=== PATIENT | male | born 1950 | race Caucasian/White ===

== ENCOUNTER → 2017-06-27 | Outpatient (CLI) | payer MEDICARE ==
[~2017-06-27] MED LIST: ALBUAER3 INH; AMIO200T PO; AMLO10TA2 PO; ASPI-110 PO; ATOR40TA16 PO; CLOP75TA PO; COMMODE 3-IN-11 MIS; CYCL1TAB29 PO; DOCU1CAP39 PO; FURO20TA PO; FURO40TA PO; GETGO ROLLING W1 MI1; GNP5TAB6 PO; HOSP BED1; HYDR-3516 PO; IPRASOL NEB; LEXA20TA PO; LOSA50TA PO; METO25TA3 PO; OMEP40CA2 PO; OXYC1TAB36 PO; PARO40TA2 PO; POLY17S PO; POTA8TAB PO; PRAV80TA2 PO; REST15CA PO; SIMV40TA PO; SUCR1TAB PO; SYMB160A INH; THERM PO; TRAZ50TA12 PO; VITA100018 PO; WHEEMIS3
[2017-06-27 13:37] LABS: BASOPHIL % 0.6 % (0.0-2.0); EOSINOPHIL # 0.1 TH/MM3 (0-0.4); EOSINOPHIL % 2.2 % (0.0-4.0); HEMATOCRIT 38.7 % (39.0-51.0); HEMO FLAGS DIFF FINAL; LYMPH % 29.3 % (9.0-44.0); LYMPHOCYTE # 1.9 TH/MM3 (1.0-4.8); MEAN CELL VOLUME 82.2 FL (80.0-100.0); MEAN CORPUSCULAR HEMOGLOBIN 26.3 PG (27.0-34.0); NEUT % 61.9 % (16.0-70.0); PLATELET COUNT 220 TH/MM3 (150-450); WHITE BLOOD COUNT 6.4 TH/MM3 (4.0-11.0)
[2017-06-27 13:45] LABS: APTT (PATIENT) 26.6 SEC (24.3-30.1); PROTHROMBIN TIME - PATIENT 10.7 SEC (9.8-11.6)
[2017-06-27 14:09] LABS: ANION GAP 6 MEQ/L (5-15); BICARBONATE 32.2 MEQ/L (21.0-32.0); BLOOD UREA NITROGEN 11 MG/DL (7-18); CHLORIDE 100 MEQ/L (98-107); GLOMERULAR FILTRATION RATE 72 ML/MIN (>89); GLUCOSE,FASTING 87 MG/DL (74-99); POTASSIUM 4.1 MEQ/L (3.5-5.1); SODIUM (NA) 138 MEQ/L (136-145)
[2017-06-27 14:26] LABS: BLOOD, URINE NEG (NEG); COMMENT (UR) CULT NOT INDICATED; CULTURE IF INDICATED CULT NOT INDICATED; GLUCOSE,URINE NEG (NEG); KETONE, URINE NEG (NEG); MUCUS URINE FEW /lpf (OCC); NITRITE,URINE NEG (NEG); PH, URINE 6.5 (5.0-8.5); URINE COLOR YELLOW (YELLW/STRAW)
--- NOTE | 2017-06-27 15:01 | RADRPT ---
EXAM DATE/TIME: 06/27/2017 14:13 [facility] COMPARISON: No previous studies available for comparison. INDICATIONS : Preop heart surgery. MEDICAL HISTORY : Cardiovascular disease. Hypertension. SURGICAL HISTORY : Cardiac stents. Left arm surgery. ENCOUNTER: Initial ACUITY: 1 day PAIN SCORE: 0/10 LOCATION: Bilateral leg. TECHNIQUE: Venous ultrasound of the left and right leg was performed from the inguinal ligament to the proximal calf. Real-time, color Doppler and spectral tracing, compression and augmentation techniques were us ed. FINDINGS: RIGHT LEG: There is normal compressibility of the deep venous system from the inguinal region to the proximal ca lf. No echogenic clot is seen in the lumen of the common femoral, femoral, popliteal, and posterior tibial veins. There is a normal response of the venous system to proximal and distal augmentation an d respiration. LEFT LEG: There is normal compressibility of the deep venous system from the inguinal region to the proximal ca lf. No echogenic clot is seen in the lumen of the common femoral, femoral, popliteal, and posterior tibial veins. There is a normal response of the venous system to proximal and distal augmentation an d respiration. CONCLUSION: Normal examination. Arik Hardy MD on June 27, 2017 at 15:00 Board Certified Radiologist. This report was verified electronically.
--- NOTE | 2017-06-27 15:12 | RADRPT ---
EXAM DATE/TIME: 06/27/2017 14:57 [facility] COMPARISON: No previous studies available for comparison. INDICATIONS : Evaluate for pneumonia, pneumothorax, or communicable disease. Pre op for CABG. MEDICAL HISTORY : None. SURGICAL HISTORY : None. ENCOUNTER: Initial ACUITY: 1 day PAIN SCORE: 0/10 LOCATION: Bilateral chest FINDINGS: There is slight atelectasis in right middle lobe and left lung base.. There is no appreciable pleura l effusion for technique. Heart and mediastinum are unremarkable. Degenerative changes and hypertrop hic changes are seen within the disc space and facets of the thoracic spine. CONCLUSION: Bilateral atelectasis. Trisha Bowser MD on June 27, 2017 at 15:10 Board Certified Radiologist. This report was verified electronically.
--- NOTE | 2017-06-27 15:25 | RADRPT ---
EXAM DATE/TIME: 06/27/2017 14:21 [facility] COMPARISON: No previous studies available for comparison. INDICATIONS : Preop cardiac surgery. MEDICAL HISTORY : Hypertension. SURGICAL HISTORY : Cardiac stents. Left arm surgery. ENCOUNTER: Initial ACUITY: 1 day PAIN SCORE: 0/10 LOCATION: Bilateral leg. GREATER SAPHENOUS VEIN THIGH: PROXIMAL: Right 5 mm Left 5 mm MID: Right 2 mm Left 2 mm DISTAL: Right 2 mm Left 1 mm CALF: PROXIMAL: Right Non-visualized Left 1 mm MID: Right Non-visualized Left 1 mm DISTAL: Right Non-visualized Left 2 mm FINDINGS: The venous system of the lower extremities are patent by color Doppler imaging. Measurements of the leg veins (in mm) are listed above. CONCLUSION: 1. Venous mapping as above Jeevan Enriquez MD on June 27, 2017 at 15:23 Board Certified Radiologist. This report was verified electronically.
[2017-06-27 15:36] LABS: MRSA PCR NEGATIVE (NEGATIVE); STAPH AUREUS PCR NEGATIVE (NEGATIVE)
[2017-06-27 15:51] LABS: HEMOGLOBIN A1b 1.9 %; HEMOGLOBIN Ao 84.7 %; HEMOGLOBIN LA1C 1.9 %; HEMOGLOBIN P3 3.6 %
--- NOTE | 2017-06-28 11:53 | EKG ---
Date Performed: 06/27/2017 Time Performed: 12:50:05 PTAGE: 67 years EKG: Sinus rhythm LEFT AXIS DEVIATION NONSPECIFIC T-WAVE ABNORMALITY ABNORMAL ECG NO PREVIOUS TRACING DOCTOR: Truman Winn Interpretating Date/Time 06/28/2017 11:51:08
--- NOTE | 2017-07-03 09:57 | RSPPFT ---
DATE OF PROCEDURE: 06/27/17 COMMENTS: Spirometry with FVC of 2.1, FEV1 of 1.4, FEV1/FVC ratio at 66%. Post-bronchodilator study was not performed. IMPRESSION: 1. Moderately severe airways obstruction.
== END ==
LOC: CPRE 12:08
PROVIDERS: ATTEND Thoracic Surgery (Cardiothoracic Vascular Surgery)
DX: Z01.812 Encounter for preprocedural laboratory examination (principal); Z01.810 Encounter for preprocedural cardiovascular examination; Z01.811 Encounter for preprocedural respiratory examination; I25.10 Atherosclerotic heart disease of native coronary artery without angina pectoris; R94.31 Abnormal electrocardiogram [ECG] [EKG]; J98.11 Atelectasis; Z79.01 Long term (current) use of anticoagulants
CPT/HCPCS: 36415; 71020; 80048; 81001; 82040; 83036; 85025; 85610; 85730; 86850; 86900; 86901; 87640; 87641; 93005; 93970; 93998; 94010

== ENCOUNTER 2017-07-01 07:30 | Inpatient (IN) | payer MEDICARE ==
[~2017-07-01] VITALS: Ht 167.6 cm; Wt 92.5 kg
[~2017-07-01 07:30] MED LIST changes: -AMIO200T PO; -COMMODE 3-IN-11 MIS; -DOCU1CAP39 PO; -FURO40TA PO; -GETGO ROLLING W1 MI1; -GNP5TAB6 PO; -HOSP BED1; -HYDR-3516 PO; -IPRASOL NEB; -POLY17S PO; -POTA8TAB PO; -REST15CA PO; -SYMB160A INH; -THERM PO; -WHEEMIS3
[2017-07-04] VITALS (10 sets, daily range): BP systolic 95–137; BP diastolic 46–70; PULSE 63–84; RESP 13–18; TEMP 97.7–98.1; O2SAT 96–98
[2017-07-04] MEDS ORDERED: VANCOMYCIN HCL 1000 MG VIAL ONE ×3 (06:10→08:43)
[2017-07-04] MEDS ORDERED: HEPARIN SODIUM - SQ 10,000 UNITS/ML VIAL ONE (06:10)
[2017-07-04] MEDS ORDERED: ceFAZolin 2 GM PREMIX 0 ML ONE (06:10)
[2017-07-04] MEDS ORDERED: VANCOMYCIN 1000 MG/NS 250 ML IV SCH ×2 (06:15)
[2017-07-04] MEDS ORDERED: CEFAZOLIN 500 MG in NS IRR BTL 500 ML IRRIGATION SCH (06:15)
[2017-07-04] MEDS ORDERED: INSULIN REGULAR 100 UNITS in NS 100 ML IV SCH (06:15)
[2017-07-04] MEDS ORDERED: PAPAVERINE 60 MG-NITROGLYCERIN 100 MCG-DILTIAZEM 100 MG in NS 100 ML IRRIGATION SCH ×4 (06:15)
[2017-07-04] MEDS ORDERED: METOPROLOL TARTRATE 25 MG TAB PO SCH (06:15)
[2017-07-04] MEDS ORDERED: CHLORHEXIDINE GLUCONATE 4% SOLN 120 ML BTL TOPICAL SCH (06:15)
[2017-07-04] MEDS ORDERED: SODIUM CHLORID 0.9% 500 ML IV PRN (06:30)
[2017-07-04] MEDS ORDERED: INSULIN HUMAN REGULAR 1,000 UNITS/10 ML VIAL SQ PRN (06:30)
[2017-07-04] MEDS ORDERED: METOPROLOL TARTRATE 25 MG TAB PO PRN (06:30)
[2017-07-04] MEDS ORDERED: POVIDONE IODINE 5% (ANTISEPSIS KIT) 4 APPLICATIONS EACH NARE PRN (06:30)
[2017-07-04] MEDS ORDERED: CHLORHEXIDINE GLUCONATE 2 % 1 PACK (2 CLOTHS) TOPICAL PRN (06:30)
[2017-07-04] MEDS ORDERED: LACTATED RINGER'S 1000 ML IV PRN (06:30)
[2017-07-04] MEDS ORDERED: BUPIVACAINE LIPOSO PF 1.3% INJ 20 ML, DEXAMETHASONE INJ 4 MG, MORPHINE INJ 8 MG in SODI... IRRIGATION SCH (08:45)
[2017-07-04] MEDS ORDERED: EPINEPHrine HCL (1:1000) 30 MG/30 ML VIAL IV ONE (12:00)
[2017-07-04] MEDS ORDERED: HEPARIN - 10,000 UNITS/ML IV ADDITIVE IV ONE (12:00)
[2017-07-04] MEDS ORDERED: EPINEPHrine HCL (1:1000) 1 MG/ML VIAL IV ONE (12:00)
[2017-07-04] MEDS ORDERED: DEXAMETHASONE SOD PHOS 4 MG/ML VIAL IV ONE (12:00)
[2017-07-04] MEDS ORDERED: LIDOCAINE HCL 1% PF 5 ML AMPULE OTHER ONE (12:00)
[2017-07-04] MEDS ORDERED: VECURONIUM BROMIDE 10 MG VIAL IV ONE (12:00)
[2017-07-04] MEDS ORDERED: PROPOFOL 500 MG/50 ML BTL IV ONE (12:00)
[2017-07-04] MEDS ORDERED: GLYCOPYRROLATE 0.2 MG/ML VIAL IV ONE (12:00)
[2017-07-04] MEDS ORDERED: LACTATED RINGER'S 1000 ML INJ 1,000 ML IV ONE (12:00)
[2017-07-04] MEDS ORDERED: NORMOSOL R INJ 1,000 ML IV ONE (12:00)
[2017-07-04] MEDS ORDERED: AMINOCAPROIC ACID INJ 250 MG/ML 20 ML VIAL IV ONE (12:00)
[2017-07-04] MEDS ORDERED: ARTIFICIAL TEARS OPTH OINT 3.5 APPLIC/3.5 GM TUBO EACH EYE ONE (12:00)
[2017-07-04] MEDS ORDERED: PHENYLEPHRINE HCL 10 MG/ML VIAL IV ONE (12:00)
[2017-07-04] MEDS ORDERED: CALCIUM CHLORIDE 10% SOLN 1 GRAM/10 ML SYR IV ONE (12:00)
[2017-07-04] MEDS ORDERED: DEXMEDETOMIDINE HCL 200 MCG/2 ML VIAL IV ONE (12:00)
[2017-07-04] MEDS ORDERED: NEOSTIGMINE 3 MG/3 ML SYR IV ONE (12:00)
[2017-07-04] MEDS ORDERED: NITROGLYCERIN 50 MG/DEXTROSE 5% SOLN 250 ML BTL IV ONE (12:00)
[2017-07-04] MEDS ORDERED: MAGNESIUM SULFATE 1000 MG/2 ML VIAL (PED) IV ONE (12:00)
[2017-07-04] MEDS ORDERED: PROTAMINE SULFATE 250 MG/25 ML VIAL IV ONE (12:00)
[2017-07-04] MEDS ORDERED: LACTATED RINGER'S 1000 ML INJ 500 ML IV PRN (12:25)
[2017-07-04] MEDS ORDERED: DOBUTamine PREMIX DRIP 250 ML IV SCH (12:25)
[2017-07-04] MEDS ORDERED: METOPROLOL TARTRATE 5 MG/5 ML VIAL IV PUSH PRN (12:30)
[2017-07-04] MEDS ORDERED: MEPERIDINE HCL 25 MG/ML VIAL IV PRN (12:30)
[2017-07-04] MEDS ORDERED: DEXMEDETOMIDINE INJ 200 MCG in SODIUM CHLORIDE 0.9% INJ 50 ML IV PRN (12:30)
[2017-07-04] MEDS ORDERED: ALBUMIN HUMAN 5% 12.5 GM/250 ML BOTTLE IV PRN (12:30)
[2017-07-04] MEDS ORDERED: DEXTROSE 50% IN WATER 50 ML VIAL(D50) IV PUSH PRN (12:30)
[2017-07-04] MEDS ORDERED: POTASSIUM CHLOR 20 MEQ PREMIX 100 ML IV PRN ×3 (12:30)
[2017-07-04] MEDS ORDERED: hydrALAZINE HCL 20 MG/ML VIAL IV PRN (12:30)
[2017-07-04] MEDS ORDERED: MAGNESIUM SULFATE INJ 2 GM in SODIUM CHLORIDE 0.9% INJ 100 ML IV PRN ×4 (12:30)
[2017-07-04] MEDS ORDERED: NITROGLYCERIN-D5W 50 MG/250 ML 250 ML IV PRN (12:30)
[2017-07-04] MEDS ORDERED: CLEVIDIPINE INJ 50 ML IV PRN (12:30)
[2017-07-04] MEDS ORDERED: ACETAMINOPHEN 325 MG TAB PO PRN (12:30)
[2017-07-04] MEDS ORDERED: Post-op Orders (for Pharmacy) MISC OTHER ONE (12:30)
[2017-07-04] MEDS ORDERED: POTASSIUM CHLORIDE 20 MEQ CONTROLLED RELEASE TAB PO PRN ×2 (12:30)
[2017-07-04] MEDS ORDERED: ONDANSETRON HCL 4 MG/2 ML VIAL IV PUSH PRN (12:30)
[2017-07-04] MEDS ORDERED: INSULIN REGULAR (IV INFUSION) 100 UNITS in SODIUM CHLORIDE 0.9% INJ 99 ML IV SCH (12:30)
[2017-07-04] MEDS ORDERED: SODIUM CHLORIDE 0.9% FLUSH 10 ML FLUSH IV FLUSH PRN (12:30)
[2017-07-04] MEDS ORDERED: ACETAMINOPHEN 650 MG SUPP RECTAL PRN (12:30)
[2017-07-04] MEDS ORDERED: CALCIUM CHLORIDE 10% 1 GRAM/10 ML VIAL IV PRN (12:30)
[2017-07-04] MEDS ORDERED: CALCIUM CHLORIDE INJ 1 GM in SODIUM CHLORIDE 0.9% INJ 100 ML IV PRN (12:30)
[2017-07-04] MEDS ORDERED: DOPamine INJ PREMIX 500 ML IV PRN (12:30)
[2017-07-04] MEDS ORDERED: PHENYLEPHRINE INJ 40 MG in DEXTROSE 5% IN WATE 500 ML INJ 496 ML IV PRN ×2 (12:30)
[2017-07-04] MEDS ORDERED: MORPHINE SULFATE 4 MG/ML INJ IV PRN (12:30)
[2017-07-04] MEDS ORDERED: RESP: RACEPINEPHRINE 2.25% 0.5 ML NEB NEB PRN ×2 (12:30→13:45)
--- NOTE | 2017-07-04 12:33 | PD.OP ---
cc: Bennett Lindsey MD Operative Report Date of Surgery: Jul 04, 2017 Preoperative Diagnosis: Postoperative Diagnosis: Procedure: 1. Off-pump Coronary Artery Bypass Grafting x 4 with Left Internal Mammary Artery (VILLAGRAN) to Left Anterior Descending (LAD), reverse saphenous vein graft to the RCA, reverse saphenous vein graft to the OM1 and reverse saphenous vein graft to the Diagonal 1 2. Ultrasound-guided Dissection of the LAD 3. Left Leg Endoscopic Vein [place] 4. Intraoperative Vein Mapping. Surgeon: Bennett Lindsey Sausage Maker(s): Jimena Bone Operation and Findings: PREPROCEDURE DIAGNOSES 1. Severe Multi Vessel Coronary Artery Disease. 2. Unstable Angina 3. Previous Myocardial Infarction 4. Deeply Intramyocardial Coronary Arteries POSTPROCEDURE DIAGNOSES Same SURGICAL PROCEDURE 1. Off-pump Coronary Artery Bypass Grafting x 4 with Left Internal Mammary Artery (VILLAGRAN) to Left Anterior Descending (LAD), reverse saphenous vein graft to the RCA, reverse saphenous vein graft to the OM1 and reverse saphenous vein graft to the Diagonal 1 2. Ultrasound-guided Dissection of the LAD 3. Left Leg Endoscopic Vein [place] 4. Intraoperative Vein Mapping. SURGEON Bennett Lindsey MD CHANNEL ROUGHER CAM Bernal ANESTHESIA General endotracheal RIFFLER TENDER HARRIS Villarreal MD PREPARATION ChloraPrep. COUNTS Needle, sponge, and instrument counts were correct. DRAINS Two 32-Nepali mediastinal tubes. COMPLICATIONS None. INDICATIONS FOR PROCEDURE The patient is a 67-year-old presenting with chest pain. Patient was noted to have multi-vessel coronary artery disease. The patient is being brought to the operating room for surgical revascularization therapy. PROCEDURE Patient was brought to the operating room and placed supine on the OR table. Following the induction of adequate general endotracheal anesthesia and placement of appropriate monitoring devices, intraoperative vein mapping was performed which revealed suitable-caliber conduit in bilateral lower extremities. The patient was then prepped and draped in standard sterile fashion. Next, 2500 units of intravenous heparin was given. The left greater saphenous vein was harvested endoscopically. This appeared to be a useable- caliber conduit. Simultaneously, a median sternotomy was performed and the left internal mammary artery dissected free off the posterior sternal table. The patient was systemically heparinized and anticoagulation monitored by serial ACT measurements. The internal mammary artery had excellent pulsatile flow in it and was a good-caliber conduit. The pericardium was then divided in the midline, the cradle created and targets analyzed. At this point, all anastomoses were performed in a beating-heart fashion using the Maquet stabilizing system. The left internal mammary artery was anastomosed to the mid LAD (1.75 mm) in an end-to-side fashion using 7-0 Prolene. Segment of saphenous vein graft was then anastomosed to the RCA (2.75 mm) in an end-to-side fashion using 7-0 Prolene. The next segment was anastomosed to the D1 (1.5 mm) in an end -to-side fashion using a running 7-0 Prolene. The final segment was anastomosed to the OM1 (2 mm) in an end-to-side fashion using 7-0 Prolene. The proximal anastomoses were then constructed to the ascending aorta in a running manner using 6-0 Prolene. All anastomotic sites were inspected and appeared to be hemostatic and patent. Protamine solution was given. Strict hemostasis was assured. The closure was undertaken. 2 chest tubes were placed. The pericardium was reapproximated in the midline. The sternum was approximated using sternal wires. The muscular and fascial layer were then closed in 3 layers. The endoscopic vein harvest site was closed in 2 layers. The patient tolerated the procedure well and was transferred to CVICU in stable condition. Bennett Lindsey MD Jul 04, 2017 12:33
[2017-07-04] MEDS ORDERED: PHENYLEPHRINE HCL 10 MG/ML VIAL ONE (13:07)
[2017-07-04] MEDS ORDERED: MIDAZOLAM HCL 5 MG/5 ML VIAL ONE (13:08)
[2017-07-04] MEDS ORDERED: fentaNYL CITRATE 1000 MCG/20 ML VIAL ONE (13:08)
[2017-07-04] MEDS ORDERED: RESP: ALBUTEROL 2.5 MG/IPRATROPIUM 0.5 MG NEB (PRN) NEB (13:45)
[2017-07-04] MEDS ORDERED: SODIUM BICARBONATE 8.4% INJ 50 MEQ/50 ML SYR ONE (13:53)
--- NOTE | 2017-07-04 14:11 | RADRPT ---
EXAM DATE/TIME: 07/04/2017 13:08 [facility] COMPARISON: CHEST PA & LAT, June 27, 2017, 14:57. INDICATIONS : Post-op CABG. MEDICAL HISTORY : None. SURGICAL HISTORY : CABG. ENCOUNTER: Initial ACUITY: 1 day PAIN SCORE: Non-responsive. LOCATION: Bilateral chest FINDINGS: A single view of the chest demonstrates the endotracheal tube, left chest tube are in good position. A nasogastric tube reaches the lower esophagus. Left subclavian central line in good position. The c ardiomediastinal contours are unremarkable. Osseous structures are intact. CONCLUSION: Tubes and catheters as above. The nasogastric extends to the distal esophagus Kiet Washington MD on July 04, 2017 at 14:09 Board Certified Radiologist. This report was verified electronically.
--- NOTE | 2017-07-04 14:13 | PD.CAR.PN ---
CVT Progress Note Subjective/Hospital Course: 67/ male Pt of Dr Oleg Gifford ( PCP) and Dr Nj Echeverria (cardiology in [place] ) known hx of AMI and subsequent PCI ( [place]) with progressive symptoms of chest pain, SOB and fatigue. Underwent further testing with + stress test showing reversible ischemia, cardiac cath revealed multivessel disease EF 55-60% , mild MR, TR PMH: CAD/ stent ( prior [place]) , COPD, depression , GERD, HTN, HLP, spinal surgery surgery 07/04: 1. Off-pump Coronary Artery Bypass Grafting x 4 with Left Internal Mammary Artery (VILLAGRAN) to Left Anterior Descending (LAD), reverse saphenous vein graft to the RCA, reverse saphenous vein graft to the OM1 and reverse saphenous vein graft to the Diagonal 1 2. Ultrasound-guided Dissection of the LAD 3. Left Leg Endoscopic Vein [place] Objective: Vital Signs Date Time Temp Pulse Resp B/P (MAP) Pulse Ox O2 Delivery O2 Flow Rate FiO2 07/04/17 14:00 98 55 07/04/17 13:23 50 07/04/17 12:49 96 60 07/04/17 06:49 97.6 69 20 137/84 (101) 95 Lotus Sahni Jul 04, 2017 14:13
[2017-07-04] MEDS: ACETAMINOPHEN 1000 MG/100 ML 100 ML IV SCH ×2 (14:18→20:00)
--- NOTE | 2017-07-04 14:20 | HHI.FF ---
Face to Face Verification Diagnosis: (1) S/P CABG x 4 (2) Coronary artery disease (3) COPD (chronic obstructive pulmonary disease) (4) Hyperlipemia (5) Hypertension (6) Depression Home Health Nursing Order: Signs/symptoms of disease process Wound care and dressing changes Nursing assessment with vital signs Instructions: Heart and Vascular Surgery patients *Special attention to sternal dressing Mandatory frequency Assess and evaluation, 4 days in a row The next week 3X week 2 times a week for 4 weeks 1 time a week for 5 weeks Schedule Heart and Vascular patients for full 60 day certification period Initial visit Review Open Heart Surgery Discharge Instructions (Sternal precautions, Activity, Elastic hose, Incision care, Driving, Incentive spirometry, Smoking, [place], Work and other) Need Betadine to paint incision Medication reconciliation Importance of follow up care/ check on appointments Make calendar record temperature daily When to call [facility] nurse, review instructions, phone list Incentive Spirometry, demonstration Visit 1- Begin discharge instruction for patient family and/ or caregiver using teach back method- Signs and symptoms of infection Disease characteristics Medicines and side effects Foods and nutrition/ appetite Infection control/ hand washing/ hygiene Visit 2- Continue teaching Discharge instructions- include additional information on smoking cessation , sternal dressing (sternal vac) Visit 3- Continue teaching- Cough and deep breathing, incision monitoring. Choose my plate Visit 4- Continue teaching- Discuss limitations Discuss how they are feeling Discuss progress toward goals Remaining visits- continue teaching and monitoring PREVENA Single Use Negative Wound Therapy System Caregiver Instruction Sheet 1. A Prevena dressing system was applied to the chest incision during surgery , to promote wound healing. It works via a suction device (negative pressure wound therapy) to remove low to moderate levels of exudate (drainage) and infectious materials. We recommend that the device stay in place for up to seven days, from day of surgery. 2. Day of Surgery____/ Day of Removal ___/ 3. The dressing should only be removed by a health vocational childcare teacher. Please arrange removal of device to coincide with Home Health visit and or with Nursing staff at Rehab 4. If skin reddening or irritation of skin occurs, or excessive drainage, please notify the Cardiovascular Surgeons office at [phone]. 5. Light showering is permissible; however the pump should be disconnected and placed in safe location, where it will not get wet. The dressing should not be exposed to direct spray or submerged in water. No bath tub / shower only. Ensure the end of the tubing attached to the dressing is facing down so that water does not enter the top of the tube. 6. To remove Prevena dressing: press purple button to turn off device / remove the suction. Then disconnect the tubing from the pump. The fixation strips should be stretched away from the skin and the dressing lifted at one corner and peeled back until it has been fully removed. 7. After removal, it is ok to shower daily using liquid dial soap and clean wash cloth, rinse and pat dry, and leave incision open to air dry. For any concerns regarding Prevena dressing, and or wounds, please contact Lianet Rod, patient navigator at [phone] or notify the Cardiovascular Surgeons office at [phone]. Incentive spirometry Q1 hr x 10, while awake, also use acapella device hourly whole awake Sternal Breast Bone Precautions: NO pushing or pulling, ( pt must use sternal pillow to support chest with all activities and with coughing ( takes up to 3 months breast bone to heal ) Daily incision care: ok to shower daily, no tub bath. Wash all incisions with liquid dial soap, clean wash cloth to each site, rinse and pat dry. Observe for any signs of infection, such as drainage which is dark yellow, dial, green or foul smelling. Immediately report to the surgeon any drainage from the chest incision, or legs, and for any abnormal drainage from the chest tube sites. Notify surgeon if any temp >101.5 degrees F. When specialty dressing removed/ or if you do not have one, continue to shower daily as above, then rinse and pat incision dry and paint with betadine daily x 5 days. Allow steri strips to fall off if you have any. Avoid lotions, creams, salves, oils, etc. for the first month Please see attached forms for additional instructions regarding post Open Heart specialty wound vacuum dressings. PADMINI or Prevena , Dressing to be removed by Nursing staff on __/ F/U appointment: as per DC instructions: PCP in 2 weeks, CV surgeon 2 weeks, Biophysics Professor 3-4 weeks For any questions regarding incisions/ dressing / meds / post op care or above Symptoms, Saturday 8am-5pm Heart & Vascular Surgery Office ( Dr. Lindsey & Dr. Ponce), After Hours / Nights (5pm -8am) Weekends and Holidays Please call [facility] ([facility]) Charge Nurse I have seen patient Ed Eric on 07/04/17. My clinical findings support the need for the requested home health care services because: Deconditioned w/ increased weakness I certify that my clinical findings support that this patient is homebound because: Post-op weakness Lotus Sahni Jul 04, 2017 14:20
[2017-07-04] MEDS: SODIUM CHLORIDE 0.9% FLUSH 10 ML FLUSH IV FLUSH SCH ×2 (15:26→20:18)
[2017-07-04] MEDS ORDERED: RESP: ALBUTEROL 2.5 MG/IPRATROPIUM 0.5 MG NEB (SCH) NEB (16:00)
[2017-07-04] MEDS: KETOROLAC TROMETHAMINE 30 MG/ML (IVP) VIAL IV PUSH PRN (16:13)
[2017-07-04] MEDS: RESP: ALBUTEROL 2.5 MG/IPRATROPIUM 0.5 MG NEB (SCH) NEB (16:57)
[2017-07-04] MEDS: AMIODARONE 200 MG TAB PO SCH (20:16)
[2017-07-04] MEDS: oxyCODONE/ACETAMINOPHEN 5 MG/325 MG TAB PO PRN (20:16)
[2017-07-04] MEDS: VANCOMYCIN INJ 1,000 MG in SODIUM CHLOR 0.9% 250 ML INJ 250 ML IV SCH (20:17)
--- NOTE | 2017-07-04 20:25 | PD.CONS ---
[facility] Service Critical Care Medicine Consult Requested By Dr. Lindsey Reason for Consult post-operative management of hemodynamic instability Primary Care Physician No Primary Care Physician History of Present Illness This is a 67-year-old male with a history of coronary artery disease who presented for elective off-pump three-vessel CABG, VILLAGRAN to LAD, vein to RCA, vein to OM1. He had an uncomplicated intraoperative course. However, he arrived to the CVICU on epinephrine 50 mics per minute, with phenylephrine pushes, systolic blood pressure in the 80s. I value patient at bedside at the request of the CVICU team. I performed bedside critical care ultrasonography which had very poor windows due to his recent sternotomy, but did provide sufficient evidence to rule out circumferential pericardial effusion and demonstrated what appeared to be an underfilled left ventricular cavity. Patient was given 750 cc crystalloid, 500 cc albumin with improvement in hemodynamics. Patient initially had a lactate of 5 and had a urine output of less than 10 mLs in the first hour. After the above resuscitation, the patient' s lactate cleared and he had urine output greater than 50 cc an hour for the subsequent 3 hours. Patient had less than 200 cc chest tube output over the first 4 hours. After his initial hemodynamic instability he was extubated on pathway. Critical-care medicine is consulted to evaluate and manage his hemodynamics post CABG. Review of Systems ROS Limitations: Clinical Condition, Intubated Past Family Social History Allergies: Coded Allergies: gabapentin (Verified Allergy, Severe, Twitching, 06/27/17) Past Medical History CAD/ stent ( prior [place]) COPD depression GERD HTN HLP Past Surgical History spinal surgery Reported Medications Trazodone (Trazodone HCl) 50 Mg Tab 50 Mg PO HS Sucralfate 1 Gram Tab 1 Gm PO BID on empty stomach Simvastatin 40 Mg Tab 40 Mg PO HS Paroxetine (Paroxetine HCl) 40 Mg Tab 40 Mg PO DAILY Oxycodone-Acetaminophen 10-325 mg Tab 1 Tab PO Q4H PRN Omeprazole 40 Mg Cap 40 Mg PO DAILY Metoprolol Tartrate 25 Mg Tab 25 Mg PO DAILY Losartan (Losartan Potassium) 50 Mg Tab 50 Mg PO DAILY Furosemide 20 Mg Tab 20 Mg PO DAILY Lexapro (Escitalopram Oxalate) 20 Mg Tab 20 Mg PO DAILY Flexeril (Cyclobenzaprine HCl) 10 Mg Tab 10 Mg PO TID PRN Clopidogrel (Clopidogrel Bisulfate) 75 Mg Tab 75 Mg PO DAILY Vitamin D3 (Cholecalciferol) 1,000 Unit Tab 1,000 Units PO DAILY Aspirin 81 (Aspirin) 81 Mg Tabdr 81 Mg PO DAILY Proair Hfa 8.5 GM Inh (Albuterol Sulfate) 90 Mcg/Act Aer 1 Puff INH Q4H PRN 108 mcg/actuation Active Ordered Medications See MAR Family History unable to obtain from patient secondary to his clinical condition. Social History unable to obtain from patient due to his clinical condition Physical Exam Vital Signs Vital Signs Date Time Temp Pulse Resp B/P (MAP) Pulse Ox O2 Delivery O2 Flow Rate FiO2 07/04/17 19:00 97.8 77 16 112/70 (84) 97 137/57 (83) 07/04/17 19:00 97 Nasal Cannula 3.00 07/04/17 18:09 97.7 07/04/17 17:34 16 07/04/17 16:26 67 157/75 07/04/17 16:05 98 Nasal Cannula 3.00 07/04/17 16:00 67 157/75 07/04/17 15:45 97.7 07/04/17 15:15 64 135/68 07/04/17 15:00 40 07/04/17 15:00 97.7 63 13 104/54 (71) 98 121/61 (81) 07/04/17 15:00 63 07/04/17 15:00 97 Mechanical Ventilator 40 07/04/17 14:48 14 07/04/17 14:30 62 120/60 07/04/17 14:15 70 147/72 07/04/17 14:14 96 55 07/04/17 14:00 98 55 07/04/17 13:45 64 83/45 07/04/17 13:40 97.9 07/04/17 13:30 65 79/49 07/04/17 13:23 50 07/04/17 12:49 96 60 07/04/17 12:45 97.9 69 14 96/46 (63) 96 95/49 (64) 07/04/17 12:45 96 Mechanical Ventilator 60 07/04/17 12:45 60 07/04/17 06:49 97.6 69 20 137/84 (101) 95 Physical Exam GENERAL: Middle-aged male, lying in bed, intubated, sedated HEENT: Normocephalic. Atraumatic. Pupils equal, round, reactive, conjugate. Mucous membranes are moist NECK: Trachea is midline. There is no JVD. CHEST: Midline sternal wound with wound VAC in place. 2 chest tubes exit subxiphoid with 50 mL bright red blood. No air leak. CARDIOVASCULAR: Normal rate, regular rhythm. Sinus by telemetry. Hypotensive systolic and 80s. ABDOMEN: Soft, nontender, nondistended. No guarding. MUSCULOSKELETAL: Pulses 2+. No peripheral edema. NEUROLOGICAL: RASS -3. Sedated, intubated. Withdraws to pain. Does not follow commands on my initial evaluation. Imaging Last Impressions Chest X-Ray 07/04/17 0000 Signed Impressions: Service Date/Time: June 13:08 - CONCLUSION: Tubes and catheters as above. The nasogastric extends to the distal esophagus Kiet Washington MD Assessment and Plan Assessment and Plan Assessment: 67-year-old male postop day 0 status post three-vessel off-pump CABG (VILLAGRAN-->LAD, SVG-->RCA, SVG-->OM1) with early hemodynamic instability likely related to under resuscitation. We'll keep in ICU and monitor closely. We'll trend lactates. Will monitor urine output very closely and chest tube output. Hypotension Hypovolemic Shock -- continue crystalloid resuscitation -- transition from epinephrine to phenylephrine for map goal > 65 mmHg -- trend lactates -- watch uop closely s/p CABG x 3 -- anticoagulation plan per CT surgery -- CT to suction -- watch CT output HLD -- restart statin in AM HTN -- goal sbp < 160 -- will wait until tomorrow to restart anti-hypertensives. This patient remains critically ill with one or more organ systems which are or may become a threat to life. I have spent in excess of 54 minutes discontinuously in the care and management of this patient. This time is exclusive of procedures, and includes, but is not limited to, evaluation of the patient, review of the medical record, discussions with family, consultants, nursing staff, or respiratory therapy, and documentation in the medical record. Geremias Ayoub MD Jul 04, 2017 20:25
[2017-07-05] VITALS (13 sets, daily range): BP systolic 110–159; BP diastolic 52–83; PULSE 72–89; RESP 14–18; TEMP 97.9–98.4; O2SAT 91–99
[2017-07-05] MEDS: oxyCODONE/ACETAMINOPHEN 5 MG/325 MG TAB PO PRN ×5 (01:07→19:09)
[2017-07-05] MEDS: ACETAMINOPHEN 1000 MG/100 ML 100 ML IV SCH ×2 (02:00→08:16)
[2017-07-05] MEDS: KETOROLAC TROMETHAMINE 30 MG/ML (IVP) VIAL IV PUSH PRN ×2 (03:25→21:27)
[2017-07-05] MEDS: RESP: ALBUTEROL 2.5 MG/IPRATROPIUM 0.5 MG NEB (SCH) NEB ×5 (03:34→20:30)
--- NOTE | 2017-07-05 05:33 | RADRPT ---
EXAM DATE/TIME: 07/05/2017 04:33 [facility] COMPARISON: CHEST SINGLE AP, July 04, 2017, 13:08. INDICATIONS : Status post CABG. MEDICAL HISTORY : None. SURGICAL HISTORY : CABG. ENCOUNTER: Subsequent ACUITY: 2 days PAIN SCORE: 0/10 LOCATION: chest FINDINGS: A single view of the chest demonstrates the lungs to be symmetrically aerated with stable position of a left thoracostomy tube no pneumothorax. Worsening atelectatic changes of the right hemidiaphragm w ith a worsening area of consolidation/effusion in the left base. Heart size is borderline but appears to be well compensated. Endotracheal tube is been removed. Stable position of the mediastinal drain and left subclavian central venous catheter. CONCLUSION: 1. Progressive atelectatic changes above the right hemidiaphragm with worsening consolidation/effusio n in the left base. 2. Left-sided thoracostomy tube without pneumothorax. 3. Endotracheal tube has been removed. Justino Kitchen MD on July 05, 2017 at 5:30 Board Certified Radiologist. This report was verified electronically.
[2017-07-05 05:49] LABS: HEMATOCRIT 31.1 % (39.0-51.0); MEAN CELL VOLUME 82.3 FL (80.0-100.0); MEAN CORPUSCULAR HEMOGLOBIN 26.6 PG (27.0-34.0); MEAN CORPUSCULAR HGB CONC 32.3 % (32.0-36.0); PLATELET COUNT 173 TH/MM3 (150-450); RED BLOOD COUNT 3.77 MIL/MM3 (4.50-5.90); REVIEW FLAG FINAL; WHITE BLOOD COUNT 10.8 TH/MM3 (4.0-11.0)
[2017-07-05] MEDS: PANTOPRAZOLE SOD 40 MG DELAYED RELEASE TAB PO SCH (06:00)
[2017-07-05 06:03] LABS: BICARBONATE 25.6 MEQ/L (21.0-32.0); POTASSIUM 5.2 MEQ/L (3.5-5.1)
[2017-07-05] MEDS ORDERED: FUROSEMIDE 40 MG/4 ML VIAL ONE (06:51)
--- NOTE | 2017-07-05 07:29 | PD.CAR.PN ---
CVT Progress Note Subjective/Hospital Course: 67/ male Pt of Dr Oleg Gifford ( PCP) and Dr Nj Echeverria (cardiology in [place] ) known hx of AMI and subsequent PCI ( [place]) with progressive symptoms of chest pain, SOB and fatigue. Underwent further testing with + stress test showing reversible ischemia, cardiac cath revealed multivessel disease EF 55-60% , mild MR, TR PMH: CAD/ stent ( prior [place]) , COPD, depression , GERD, HTN, HLP, spinal surgery surgery 07/04: 1. Off-pump Coronary Artery Bypass Grafting x 4 with Left Internal Mammary Artery (VILLAGRAN) to Left Anterior Descending (LAD), reverse saphenous vein graft to the RCA, reverse saphenous vein graft to the OM1 and reverse saphenous vein graft to the Diagonal 1 2. Ultrasound-guided Dissection of the LAD 3. Left Leg Endoscopic Vein [place] 07/05 Doing well Extubated and tolerating well On no pressors/inotropes Transfer telemetry Ambulate Objective: Vital Signs Date Time Temp Pulse Resp B/P (MAP) Pulse Ox O2 Delivery O2 Flow Rate FiO2 07/05/17 03:34 96 Nasal Cannula 3.00 07/05/17 03:00 96 Nasal Cannula 3.00 07/05/17 03:00 77 07/05/17 03:00 98.4 77 16 110/67 (81) 97 130/52 (78) 07/04/17 23:00 84 07/04/17 23:00 96 Nasal Cannula 3.00 07/04/17 23:00 98.1 84 18 119/65 (83) 96 131/60 (83) 07/04/17 19:00 97.8 77 16 112/70 (84) 97 137/57 (83) 07/04/17 19:00 97 Nasal Cannula 3.00 07/04/17 19:00 77 07/04/17 18:09 97.7 07/04/17 17:34 16 07/04/17 16:26 67 157/75 07/04/17 16:05 98 Nasal Cannula 3.00 07/04/17 16:00 67 157/75 07/04/17 15:45 97.7 07/04/17 15:15 64 135/68 07/04/17 15:00 40 07/04/17 15:00 97.7 63 13 104/54 (71) 98 121/61 (81) 07/04/17 15:00 63 07/04/17 15:00 97 Mechanical Ventilator 40 07/04/17 14:48 14 07/04/17 14:30 62 120/60 07/04/17 14:15 70 147/72 07/04/17 14:14 96 55 07/04/17 14:00 98 55 07/04/17 13:45 64 83/45 07/04/17 13:40 97.9 07/04/17 13:30 65 79/49 07/04/17 13:23 50 07/04/17 12:49 96 60 07/04/17 12:45 97.9 69 14 96/46 (63) 96 95/49 (64) 07/04/17 12:45 96 Mechanical Ventilator 60 07/04/17 12:45 60 Labs: Laboratory Tests Test 07/05/17 04:50 White Blood Count 10.8 TH/MM3 (4.0-11.0) Red Blood Count 3.77 MIL/MM3 (4.50-5.90) Hemoglobin 10.0 GM/DL (13.0-17.0) Hematocrit 31.1 % (39.0-51.0) Mean Corpuscular Volume 82.3 FL (80.0-100.0) Mean Corpuscular Hemoglobin 26.6 PG (27.0-34.0) Mean Corpuscular Hemoglobin Concent 32.3 % (32.0-36.0) Red Cell Distribution Width 15.0 % (11.6-17.2) Platelet Count 173 TH/MM3 (150-450) Mean Platelet Volume 7.9 FL (7.0-11.0) Blood Urea Nitrogen 13 MG/DL (7-18) Creatinine 0.70 MG/DL (0.60-1.30) Random Glucose 120 MG/DL (74-106) Calcium Level 7.6 MG/DL (8.5-10.1) Magnesium Level 2.0 MG/DL (1.5-2.5) Sodium Level 138 MEQ/L (136-145) Potassium Level 5.2 MEQ/L (3.5-5.1) Chloride Level 106 MEQ/L (98-107) Carbon Dioxide Level 25.6 MEQ/L (21.0-32.0) Anion Gap 6 MEQ/L (5-15) Estimat Glomerular Filtration Rate 112 ML/MIN (>89) Result Diagram: 07/05/17 0450 07/05/17 0450 (1) S/P CABG x 4 (2) Coronary artery disease Problem Qualifiers (1) Coronary artery disease: Bennett Lindsey MD Jul 05, 2017 07:29
[2017-07-05] MEDS ORDERED: GLUCAGON 1 MG/ML VIAL OTHER PRN (07:45)
[2017-07-05] MEDS ORDERED: SOD PHOSPHATE/SOD BIPHOSPHATE (ADULT) ENEMA 133ML RECTAL PRN (07:45)
[2017-07-05] MEDS ORDERED: CYCLOBENZAPRINE HCL 10 MG TAB PO PRN (07:45)
[2017-07-05] MEDS ORDERED: DEXTROSE 50% IN WATER 50 ML VIAL(D50) IV PRN (07:45)
[2017-07-05] MEDS ORDERED: BISACODYL 10 MG SUPP RECTAL PRN (07:45)
[2017-07-05] MEDS: VANCOMYCIN INJ 1,000 MG in SODIUM CHLOR 0.9% 250 ML INJ 250 ML IV SCH ×2 (08:24→21:24)
[2017-07-05] MEDS: MULTIVITAMIN INJ 10 ML, THIAMINE INJ 500 MG, FOLIC ACID INJ 1 MG in SODIUM CHLORID 0.9%... IV SCH (08:35)
[2017-07-05] MEDS: SODIUM CHLORIDE 0.9% FLUSH 10 ML FLUSH IV FLUSH SCH ×2 (08:47→21:24)
[2017-07-05] MEDS: AMIODARONE 200 MG TAB PO SCH ×2 (08:48→21:22)
[2017-07-05] MEDS: ASPIRIN 81 MG CHEW TAB PO SCH (08:48)
[2017-07-05] MEDS: CLOPIDOGREL 75 MG TAB PO SCH (08:48)
[2017-07-05] MEDS: ESCITALOPRAM OXALATE 20 MG TAB PO SCH (09:00)
[2017-07-05] MEDS: SUCRALFATE 1 GM TAB PO SCH ×2 (09:00→21:23)
[2017-07-05] MEDS: PARoxetine HCL 20 MG TAB PO SCH (09:00)
[2017-07-05] MEDS: METOPROLOL TARTRATE 25 MG TAB PO SCH ×2 (09:18→21:23)
[2017-07-05] MEDS: MAGNESIUM HYDROXIDE SUSP 30 ML CUP PO SCH (09:18)
[2017-07-05] MEDS: MULTIVITAMINS/MINERALS THERAPEUTIC TAB PO SCH (09:18)
[2017-07-05] MEDS: INSULIN ASPART SUPPLEMENTAL SCALE SQ SCH ×4 (09:42→22:00)
--- NOTE | 2017-07-05 13:50 | EKG ---
Date Performed: 07/05/2017 Time Performed: 05:25:48 PTAGE: 67 years EKG: Sinus rhythm Possible inferior infarct - age undetermined Low QRS voltages in precordial leads Nonspecific T wave changes Abnormal ECG No significant change from prior electrocardiogram. PREVIOUS TRACING : 06/27/2017 12.50 DOCTOR: Jarek Junior Interpretating Date/Time 07/05/2017 13:48:16
[2017-07-05] MEDS: DOCUSATE SODIUM 100 MG CAP PO SCH (21:22)
[2017-07-05] MEDS: traZODone HCL 50 MG TAB PO SCH (21:23)
[2017-07-05] MEDS: SENNOSIDES 8.6 MG TAB PO SCH (21:23)
[2017-07-05] MEDS: PRAVASTATIN SOD 80 MG TAB PO SCH (21:25)
[2017-07-06] VITALS (29 sets, daily range): BP systolic 110–140; BP diastolic 66–83; PULSE 63–84; RESP 14–22; TEMP 97.6–99.1; O2SAT 91–99
[2017-07-06] MEDS: INSULIN ASPART SUPPLEMENTAL SCALE SQ SCH ×5 (02:00→20:48)
[2017-07-06] MEDS ORDERED: TEMAZEPAM 15 MG CAP PO SCH (02:00)
[2017-07-06] MEDS: TEMAZEPAM 15 MG CAP PO PRN ×2 (02:06→20:47)
[2017-07-06] MEDS: oxyCODONE/ACETAMINOPHEN 5 MG/325 MG TAB PO PRN ×3 (05:36→23:21)
[2017-07-06] MEDS: PANTOPRAZOLE SOD 40 MG DELAYED RELEASE TAB PO SCH (05:36)
[2017-07-06] MEDS: KETOROLAC TROMETHAMINE 30 MG/ML (IVP) VIAL IV PUSH PRN (05:40)
[2017-07-06 06:00] LABS: AUTOMATED NEUTROPHIL # 6.6 TH/MM3 (1.8-7.7); BASOPHIL % 0.1 % (0.0-2.0); EOSINOPHIL % 0.3 % (0.0-4.0); HEMATOCRIT 27.6 % (39.0-51.0); HEMO FLAGS DIFF FINAL; LYMPH % 12.4 % (9.0-44.0); MEAN CELL VOLUME 82.7 FL (80.0-100.0); MEAN CORPUSCULAR HEMOGLOBIN 27.8 PG (27.0-34.0); MEAN CORPUSCULAR HGB CONC 33.6 % (32.0-36.0); MONO % 8.5 % (0.0-8.0); NEUT % 78.7 % (16.0-70.0); PLATELET COUNT 159 TH/MM3 (150-450); RED BLOOD COUNT 3.34 MIL/MM3 (4.50-5.90); RED CELL DISTRIBUTION WIDTH 15.6 % (11.6-17.2); WHITE BLOOD COUNT 8.4 TH/MM3 (4.0-11.0)
[2017-07-06 06:30] LABS: MAGNESIUM 2.3 MG/DL (1.5-2.5); POTASSIUM 4.7 MEQ/L (3.5-5.1)
[2017-07-06] MEDS: POLYETHYLENE GLYCOL 17 GM PKG PO SCH (08:15)
[2017-07-06] MEDS: SUCRALFATE 1 GM TAB PO SCH ×2 (08:16→20:46)
[2017-07-06] MEDS: PARoxetine HCL 20 MG TAB PO SCH (08:16)
[2017-07-06] MEDS: AMIODARONE 200 MG TAB PO SCH ×2 (08:16→20:45)
[2017-07-06] MEDS: MAGNESIUM HYDROXIDE SUSP 30 ML CUP PO SCH (08:16)
[2017-07-06] MEDS: METOPROLOL TARTRATE 25 MG TAB PO SCH ×2 (08:16→20:47)
[2017-07-06] MEDS: CLOPIDOGREL 75 MG TAB PO SCH (08:16)
[2017-07-06] MEDS: ESCITALOPRAM OXALATE 20 MG TAB PO SCH (08:16)
[2017-07-06] MEDS: SODIUM CHLORIDE 0.9% FLUSH 10 ML FLUSH IV FLUSH SCH ×2 (08:17→20:40)
[2017-07-06] MEDS: DOCUSATE SODIUM 100 MG CAP PO SCH ×2 (08:17→20:45)
[2017-07-06] MEDS: MULTIVITAMINS/MINERALS THERAPEUTIC TAB PO SCH (08:17)
[2017-07-06] MEDS: ASPIRIN 81 MG CHEW TAB PO SCH (08:17)
[2017-07-06] MEDS: RESP: ALBUTEROL 2.5 MG/IPRATROPIUM 0.5 MG NEB (SCH) NEB ×3 (08:44→20:06)
[2017-07-06] MEDS: MULTIVITAMIN INJ 10 ML, THIAMINE INJ 500 MG, FOLIC ACID INJ 1 MG in SODIUM CHLORID 0.9%... IV SCH (09:54)
--- NOTE | 2017-07-06 10:02 | PD.CAR.PN ---
CVT Progress Note Subjective/Hospital Course: 67/ male Pt of Dr Oleg Gifford ( PCP) and Dr Nj Echeverria (cardiology in [place] ) known hx of AMI and subsequent PCI ( [place]) with progressive symptoms of chest pain, SOB and fatigue. Underwent further testing with + stress test showing reversible ischemia, cardiac cath revealed multivessel disease EF 55-60% , mild MR, TR PMH: CAD/ stent ( prior [place]) , COPD, depression , GERD, HTN, HLP, spinal surgery surgery 07/04: 1. Off-pump Coronary Artery Bypass Grafting x 4 with Left Internal Mammary Artery (VILLAGRAN) to Left Anterior Descending (LAD), reverse saphenous vein graft to the RCA, reverse saphenous vein graft to the OM1 and reverse saphenous vein graft to the Diagonal 1 2. Ultrasound-guided Dissection of the LAD 3. Left Leg Endoscopic Vein [place] 07/05 Doing well Extubated and tolerating well On no pressors/inotropes Transfer telemetry Ambulate 07/06 Doing well D/C CT Ambulate and wean oxygen Discharge planning Objective: Vital Signs Date Time Temp Pulse Resp B/P (MAP) Pulse Ox O2 Delivery O2 Flow Rate FiO2 07/06/17 05:50 99.1 74 14 122/69 (86) 91 07/06/17 04:00 72 07/06/17 03:08 92 Nasal Cannula 3.00 07/06/17 03:00 75 07/06/17 02:21 92 Nasal Cannula 3.00 07/06/17 02:00 74 07/06/17 01:00 80 07/06/17 00:00 84 07/05/17 23:00 98.1 77 14 124/73 (90) 92 07/05/17 23:00 82 07/05/17 22:00 80 07/05/17 21:00 76 07/05/17 20:30 91 Nasal Cannula 3.00 07/05/17 20:30 95 Nasal Cannula 3.00 07/05/17 20:00 97.9 75 14 138/83 (101) 95 07/05/17 20:00 74 07/05/17 19:00 75 07/05/17 15:14 72 07/05/17 15:14 95 Nasal Cannula 3.00 07/05/17 15:08 97.9 72 18 140/78 (98) 95 07/05/17 15:07 17 07/05/17 11:08 95 Nasal Cannula 3.00 07/05/17 11:07 98.0 85 18 125/72 (89) 99 Labs: Laboratory Tests Test 07/06/17 05:45 White Blood Count 8.4 TH/MM3 (4.0-11.0) Red Blood Count 3.34 MIL/MM3 (4.50-5.90) Hemoglobin 9.3 GM/DL (13.0-17.0) Hematocrit 27.6 % (39.0-51.0) Mean Corpuscular Volume 82.7 FL (80.0-100.0) Mean Corpuscular Hemoglobin 27.8 PG (27.0-34.0) Mean Corpuscular Hemoglobin Concent 33.6 % (32.0-36.0) Red Cell Distribution Width 15.6 % (11.6-17.2) Platelet Count 159 TH/MM3 (150-450) Mean Platelet Volume 8.1 FL (7.0-11.0) Neutrophils (%) (Auto) 78.7 % (16.0-70.0) Lymphocytes (%) (Auto) 12.4 % (9.0-44.0) Monocytes (%) (Auto) 8.5 % (0.0-8.0) Eosinophils (%) (Auto) 0.3 % (0.0-4.0) Basophils (%) (Auto) 0.1 % (0.0-2.0) Neutrophils # (Auto) 6.6 TH/MM3 (1.8-7.7) Lymphocytes # (Auto) 1.0 TH/MM3 (1.0-4.8) Monocytes # (Auto) 0.7 TH/MM3 (0-0.9) Eosinophils # (Auto) 0.0 TH/MM3 (0-0.4) Basophils # (Auto) 0.0 TH/MM3 (0-0.2) CBC Comment DIFF FINAL Differential Comment Blood Urea Nitrogen 21 MG/DL (7-18) Creatinine 1.00 MG/DL (0.60-1.30) Random Glucose 114 MG/DL (74-106) Calcium Level 8.1 MG/DL (8.5-10.1) Magnesium Level 2.3 MG/DL (1.5-2.5) Sodium Level 138 MEQ/L (136-145) Potassium Level 4.7 MEQ/L (3.5-5.1) Chloride Level 103 MEQ/L (98-107) Carbon Dioxide Level 31.0 MEQ/L (21.0-32.0) Anion Gap 4 MEQ/L (5-15) Estimat Glomerular Filtration Rate 74 ML/MIN (>89) Result Diagram: 07/06/17 0545 07/06/17 0545 (1) S/P CABG x 4 (2) Coronary artery disease Problem Qualifiers (1) Coronary artery disease: Bennett Lindsey MD Jul 06, 2017 10:02
[2017-07-06] MEDS ORDERED: FUROSEMIDE 40 MG/4 ML VIAL ONE (15:21)
[2017-07-06] MEDS ORDERED: FUROSEMIDE 100 MG/10 ML VIAL IV PUSH ONE (15:45)
--- NOTE | 2017-07-06 15:57 | RADRPT ---
EXAM DATE/TIME: 07/06/2017 15:18 [facility] COMPARISON: CHEST SINGLE AP, July 05, 2017, 4:33. INDICATIONS : Short of breath. MEDICAL HISTORY : Cardiovascular disease. SURGICAL HISTORY : CABG. ENCOUNTER: Subsequent ACUITY: 4 - 6 days PAIN SCORE: 4/10 LOCATION: Bilateral chest FINDINGS: Stable median sternotomy wires. Low lung volumes with improving aeration at the lung bases. Probable trace left pleural effusion. Cardiomediastinal contours are stable. Remainder of exam is unchanged. CONCLUSION: 1. Improving bilateral lower lung zone airspace disease. 2. Probable small trace left pleural effusion. Elliot Perez MD on July 06, 2017 at 15:55 Board Certified Radiologist. This report was verified electronically.
[2017-07-06] MEDS ORDERED: FUROSEMIDE 40 MG/4 ML VIAL IV PUSH ONE (16:00)
[2017-07-06] MEDS: SENNOSIDES 8.6 MG TAB PO SCH (20:45)
[2017-07-06] MEDS: PRAVASTATIN SOD 80 MG TAB PO SCH (20:45)
[2017-07-06] MEDS: traZODone HCL 50 MG TAB PO SCH (20:46)
[2017-07-07] VITALS (30 sets, daily range): BP systolic 105–138; BP diastolic 67–77; PULSE 63–77; RESP 16–22; TEMP 97.5–98.1; O2SAT 72–100
[2017-07-07] MEDS: oxyCODONE/ACETAMINOPHEN 5 MG/325 MG TAB PO PRN ×4 (02:54→16:11)
[2017-07-07] MEDS: PANTOPRAZOLE SOD 40 MG DELAYED RELEASE TAB PO SCH (06:13)
[2017-07-07] MEDS: INSULIN ASPART SUPPLEMENTAL SCALE SQ SCH ×4 (08:00→20:58)
[2017-07-07] MEDS: MAGNESIUM HYDROXIDE SUSP 30 ML CUP PO SCH (08:26)
[2017-07-07] MEDS: ASPIRIN 81 MG CHEW TAB PO SCH (08:26)
[2017-07-07] MEDS: CLOPIDOGREL 75 MG TAB PO SCH (08:26)
[2017-07-07] MEDS: DOCUSATE SODIUM 100 MG CAP PO SCH ×2 (08:26→20:58)
[2017-07-07] MEDS: SUCRALFATE 1 GM TAB PO SCH ×2 (08:27→20:58)
[2017-07-07] MEDS: ESCITALOPRAM OXALATE 20 MG TAB PO SCH (08:27)
[2017-07-07] MEDS: METOPROLOL TARTRATE 25 MG TAB PO SCH ×2 (08:27→20:58)
[2017-07-07] MEDS: MULTIVITAMINS/MINERALS THERAPEUTIC TAB PO SCH (08:27)
[2017-07-07] MEDS: AMIODARONE 200 MG TAB PO SCH ×2 (08:27→20:58)
[2017-07-07] MEDS: POLYETHYLENE GLYCOL 17 GM PKG PO SCH (08:27)
[2017-07-07] MEDS: SODIUM CHLORIDE 0.9% FLUSH 10 ML FLUSH IV FLUSH SCH ×2 (08:28→20:59)
[2017-07-07] MEDS: PARoxetine HCL 20 MG TAB PO SCH (08:35)
[2017-07-07] MEDS: MULTIVITAMIN INJ 10 ML, THIAMINE INJ 500 MG, FOLIC ACID INJ 1 MG in SODIUM CHLORID 0.9%... IV SCH (08:40)
--- NOTE | 2017-07-07 10:33 | PD.CAR.PN ---
CVT Progress Note Subjective/Hospital Course: 67/ male Pt of Dr Oleg Gifford ( PCP) and Dr Nj Echeverria (cardiology in [place] ) known hx of AMI and subsequent PCI ( [place]) with progressive symptoms of chest pain, SOB and fatigue. Underwent further testing with + stress test showing reversible ischemia, cardiac cath revealed multivessel disease EF 55-60% , mild MR, TR PMH: CAD/ stent ( prior [place]) , COPD, depression , GERD, HTN, HLP, spinal surgery surgery 07/04: 1. Off-pump Coronary Artery Bypass Grafting x 4 with Left Internal Mammary Artery (VILLAGRAN) to Left Anterior Descending (LAD), reverse saphenous vein graft to the RCA, reverse saphenous vein graft to the OM1 and reverse saphenous vein graft to the Diagonal 1 2. Ultrasound-guided Dissection of the LAD 3. Left Leg Endoscopic Vein [place] 07/05 Doing well Extubated and tolerating well On no pressors/inotropes Transfer telemetry Ambulate 07/06 Doing well D/C CT Ambulate and wean oxygen Discharge planning 07/07 Doing well today Had episode of desaturation yesterday, likely secondary to mucous plugging Encourage IS and pulmonary toiletry Resume bronchodilator therapy Ambulate Gentle diuresis Objective: Vital Signs Date Time Temp Pulse Resp B/P (MAP) Pulse Ox O2 Delivery O2 Flow Rate FiO2 07/07/17 07:33 99 Nasal Cannula 4.00 07/07/17 06:00 72 07/07/17 05:13 94 07/07/17 05:10 98.1 77 16 133/68 (89) 72 07/07/17 05:00 75 07/07/17 04:04 69 07/07/17 03:10 92 Nasal Cannula 3.00 07/07/17 03:00 69 07/07/17 02:00 70 07/07/17 01:00 75 07/07/17 00:05 97.8 70 16 105/67 (80) 94 07/07/17 00:02 94 Nasal Cannula 4.00 07/07/17 00:00 70 07/06/17 23:00 72 07/06/17 22:00 80 07/06/17 21:00 70 07/06/17 20:23 97.8 76 18 140/76 (97) 99 07/06/17 20:09 94 Nasal Cannula 4.00 07/06/17 20:00 76 07/06/17 19:40 92 Nasal Cannula 3.00 07/06/17 19:00 72 07/06/17 18:02 71 07/06/17 17:09 73 07/06/17 16:31 74 07/06/17 15:07 75 07/06/17 15:00 96 Nasal Cannula 4.00 07/06/17 15:00 97.9 71 22 138/83 (101) 95 07/06/17 14:53 97 Nasal Cannula 3.00 07/06/17 14:16 71 07/06/17 13:02 68 07/06/17 12:15 65 07/06/17 11:30 97.7 64 18 113/66 (82) 96 07/06/17 11:10 63 07/06/17 11:00 96 Nasal Cannula 2.00 Result Diagram: 07/06/17 0545 07/06/17 0545 (1) S/P CABG x 4 (2) Coronary artery disease Problem Qualifiers (1) Coronary artery disease: Bennett Lindsey MD Jul 07, 2017 10:33
[2017-07-07] MEDS: FUROSEMIDE 40 MG TAB PO SCH ×2 (11:35→17:39)
[2017-07-07] MEDS: RESP: ALBUTEROL 2.5 MG/IPRATROPIUM 0.5 MG NEB (SCH) NEB ×2 (12:42→20:22)
[2017-07-07] MEDS ORDERED: KETOROLAC TROMETHAMINE 30 MG/ML (IVP) VIAL IV PUSH ONE (18:15)
[2017-07-07] MEDS: traZODone HCL 50 MG TAB PO SCH (20:58)
[2017-07-07] MEDS: PRAVASTATIN SOD 80 MG TAB PO SCH (20:58)
[2017-07-07] MEDS: POTASSIUM CHLORIDE 10 MEQ CAP PO SCH (20:58)
[2017-07-07] MEDS: SENNOSIDES 8.6 MG TAB PO SCH (20:58)
[2017-07-08] VITALS (28 sets, daily range): BP systolic 137–147; BP diastolic 76–90; PULSE 62–83; RESP 17–21; TEMP 97.5–98.6; O2SAT 91–100
[2017-07-08] MEDS: RESP: ALBUTEROL 2.5 MG/IPRATROPIUM 0.5 MG NEB (PRN) NEB ×2 (04:31→11:04)
[2017-07-08] MEDS: oxyCODONE/ACETAMINOPHEN 5 MG/325 MG TAB PO PRN ×6 (04:35→23:45)
[2017-07-08] MEDS: PANTOPRAZOLE SOD 40 MG DELAYED RELEASE TAB PO SCH (05:43)
[2017-07-08 06:58] LABS: BICARBONATE 33.5 MEQ/L (21.0-32.0); POTASSIUM 4.7 MEQ/L (3.5-5.1)
[2017-07-08] MEDS: RESP: ALBUTEROL 2.5 MG/IPRATROPIUM 0.5 MG NEB (SCH) NEB ×4 (08:11→20:57)
[2017-07-08] MEDS: INSULIN ASPART SUPPLEMENTAL SCALE SQ SCH ×4 (09:22→21:00)
[2017-07-08] MEDS: SUCRALFATE 1 GM TAB PO SCH ×2 (09:39→20:23)
[2017-07-08] MEDS: DOCUSATE SODIUM 100 MG CAP PO SCH ×2 (09:39→20:23)
[2017-07-08] MEDS: POLYETHYLENE GLYCOL 17 GM PKG PO SCH (09:39)
[2017-07-08] MEDS: PARoxetine HCL 20 MG TAB PO SCH (09:39)
[2017-07-08] MEDS: POTASSIUM CHLORIDE 10 MEQ CAP PO SCH ×2 (09:39→20:23)
[2017-07-08] MEDS: MAGNESIUM HYDROXIDE SUSP 30 ML CUP PO SCH (09:39)
[2017-07-08] MEDS: CLOPIDOGREL 75 MG TAB PO SCH (09:40)
[2017-07-08] MEDS: ESCITALOPRAM OXALATE 20 MG TAB PO SCH (09:40)
[2017-07-08] MEDS: AMIODARONE 200 MG TAB PO SCH ×2 (09:40→20:22)
[2017-07-08] MEDS: MULTIVITAMINS/MINERALS THERAPEUTIC TAB PO SCH (09:40)
[2017-07-08] MEDS: METOPROLOL TARTRATE 25 MG TAB PO SCH ×2 (09:41→20:23)
[2017-07-08] MEDS: FUROSEMIDE 40 MG TAB PO SCH (09:41)
[2017-07-08] MEDS: SODIUM CHLORIDE 0.9% FLUSH 10 ML FLUSH IV FLUSH SCH ×2 (09:41→20:26)
[2017-07-08] MEDS: ASPIRIN 81 MG CHEW TAB PO SCH (09:41)
--- NOTE | 2017-07-08 10:22 | PD.CAR.PN ---
CVT Progress Note Subjective/Hospital Course: 67/ male Pt of Dr Oleg Gifford ( PCP) and Dr Nj Echeverria (cardiology in [place] ) known hx of AMI and subsequent PCI ( [place]) with progressive symptoms of chest pain, SOB and fatigue. Underwent further testing with + stress test showing reversible ischemia, cardiac cath revealed multivessel disease EF 55-60% , mild MR, TR PMH: CAD/ stent ( prior [place]) , COPD, depression , GERD, HTN, HLP, spinal surgery surgery 07/04: 1. Off-pump Coronary Artery Bypass Grafting x 4 with Left Internal Mammary Artery (VILLAGRAN) to Left Anterior Descending (LAD), reverse saphenous vein graft to the RCA, reverse saphenous vein graft to the OM1 and reverse saphenous vein graft to the Diagonal 1 2. Ultrasound-guided Dissection of the LAD 3. Left Leg Endoscopic Vein [place] 07/05 Doing well Extubated and tolerating well On no pressors/inotropes Transfer telemetry Ambulate 07/06 Doing well D/C CT Ambulate and wean oxygen Discharge planning 07/07 Doing well today Had episode of desaturation yesterday, likely secondary to mucous plugging Encourage IS and pulmonary toiletry Resume bronchodilator therapy Ambulate Gentle diuresis 07/08 Desaturates with ambulation Not wanting to walk or do IS. Encouraged pulmonary toiletry Might need rehab upon discharge. Will have CM assess Wean O2 as tolerated Objective: Vital Signs Date Time Temp Pulse Resp B/P (MAP) Pulse Ox O2 Delivery O2 Flow Rate FiO2 07/08/17 09:00 82 07/08/17 08:09 72 07/08/17 07:48 97.5 73 18 147/77 (100) 91 07/08/17 07:48 91 Nasal Cannula 2.00 07/08/17 07:48 72 07/08/17 06:02 75 07/08/17 05:04 75 07/08/17 04:43 77 07/08/17 03:15 66 07/08/17 03:15 98.2 70 20 140/90 (107) 97 07/08/17 03:15 97 Nasal Cannula 2.00 07/08/17 02:11 65 07/08/17 01:02 62 07/08/17 00:06 63 07/07/17 23:46 64 07/07/17 23:46 97.8 65 18 111/70 (84) 100 07/07/17 23:46 100 Nasal Cannula 2.50 07/07/17 22:00 66 07/07/17 21:00 70 07/07/17 20:24 99 Nasal Cannula 3.00 07/07/17 20:00 68 07/07/17 19:10 100 Nasal Cannula 3.00 07/07/17 19:10 77 07/07/17 19:10 97.9 72 19 134/72 (92) 100 07/07/17 18:23 72 07/07/17 17:29 67 07/07/17 16:04 68 07/07/17 15:00 66 07/07/17 15:00 97.5 69 16 133/72 (92) 95 07/07/17 15:00 95 Nasal Cannula 3.00 07/07/17 14:02 65 07/07/17 13:02 69 07/07/17 12:18 66 07/07/17 11:41 95 Nasal Cannula 3.00 07/07/17 11:41 97.9 63 19 134/77 (96) 95 07/07/17 11:00 71 Labs: Laboratory Tests Test 07/08/17 06:00 Blood Urea Nitrogen 24 MG/DL (7-18) Creatinine 0.98 MG/DL (0.60-1.30) Random Glucose 104 MG/DL (74-106) Calcium Level 8.5 MG/DL (8.5-10.1) Sodium Level 138 MEQ/L (136-145) Potassium Level 4.7 MEQ/L (3.5-5.1) Chloride Level 99 MEQ/L (98-107) Carbon Dioxide Level 33.5 MEQ/L (21.0-32.0) Anion Gap 6 MEQ/L (5-15) Estimat Glomerular Filtration Rate 76 ML/MIN (>89) Result Diagram: 07/06/17 0545 07/08/17 0600 (1) S/P CABG x 4 (2) Coronary artery disease Problem Qualifiers (1) Coronary artery disease: Bennett Lindsey MD Jul 08, 2017 10:22
[2017-07-08] MEDS ORDERED: EPINEPHrine HCL (1:10,000) 1 MG/10 ML SYRINGE ONE (12:30)
[2017-07-08] MEDS ORDERED: ATROPINE SULFATE 1 MG/10 ML SYRINGE ONE (12:30)
--- NOTE | 2017-07-08 12:55 | RADRPT ---
EXAM DATE/TIME: 07/08/2017 12:41 [facility] COMPARISON: CHEST SINGLE AP, July 06, 2017, 15:18. CHEST PA & LAT, June 27, 2017, 14:57. INDICATIONS : Post Op Cabg MEDICAL HISTORY : Cardiovascular disease. SURGICAL HISTORY : CABG. ENCOUNTER: Subsequent ACUITY: 4 - 6 days PAIN SCORE: 4/10 LOCATION: Bilateral chest FINDINGS: AP and lateral views of the chest demonstrate cardiac silhouette size at the upper limits for normal in this patient post median sternotomy. There is atelectasis at the right base and there is a small l eft basilar pleural-parenchymal opacity. No pneumothorax is identified. Lateral view demonstrates caitlin nting of the right costophrenic sulcus as well. Bones and soft tissues demonstrate no acute finding. CONCLUSION: Stable chest x-ray with small bilateral pleural effusions with associated volume loss and/or airspace consolidation at the lung bases. Arik Gregory MD on July 08, 2017 at 12:52 Board Certified Radiologist. This report was verified electronically.
[2017-07-08] MEDS ORDERED: FUROSEMIDE 40 MG/4 ML VIAL IV ONE (17:15)
[2017-07-08] MEDS: PRAVASTATIN SOD 80 MG TAB PO SCH (20:22)
[2017-07-08] MEDS: SENNOSIDES 8.6 MG TAB PO SCH (20:23)
[2017-07-08] MEDS: traZODone HCL 50 MG TAB PO SCH (20:23)
[2017-07-08] MEDS: TEMAZEPAM 15 MG CAP PO PRN (20:23)
[2017-07-09] VITALS (27 sets, daily range): BP systolic 130–146; BP diastolic 72–82; PULSE 64–85; RESP 16–24; TEMP 97.5–98.3; O2SAT 91–100
[2017-07-09] MEDS: oxyCODONE/ACETAMINOPHEN 5 MG/325 MG TAB PO PRN ×2 (04:21→08:46)
[2017-07-09] MEDS: PANTOPRAZOLE SOD 40 MG DELAYED RELEASE TAB PO SCH (05:49)
[2017-07-09] MEDS: INSULIN ASPART SUPPLEMENTAL SCALE SQ SCH ×4 (08:15→20:45)
[2017-07-09] MEDS: SODIUM CHLORIDE 0.9% FLUSH 10 ML FLUSH IV FLUSH SCH ×2 (08:16→20:30)
[2017-07-09] MEDS: MULTIVITAMINS/MINERALS THERAPEUTIC TAB PO SCH (08:17)
[2017-07-09] MEDS: ASPIRIN 81 MG CHEW TAB PO SCH (08:17)
[2017-07-09] MEDS: ESCITALOPRAM OXALATE 20 MG TAB PO SCH (08:17)
[2017-07-09] MEDS: DOCUSATE SODIUM 100 MG CAP PO SCH ×2 (08:17→20:29)
[2017-07-09] MEDS: PARoxetine HCL 20 MG TAB PO SCH (08:17)
[2017-07-09] MEDS: AMIODARONE 200 MG TAB PO SCH ×2 (08:17→20:29)
[2017-07-09] MEDS: METOPROLOL TARTRATE 25 MG TAB PO SCH ×2 (08:17→20:30)
[2017-07-09] MEDS: SUCRALFATE 1 GM TAB PO SCH ×2 (08:17→20:29)
[2017-07-09] MEDS: POTASSIUM CHLORIDE 10 MEQ CAP PO SCH (08:17)
[2017-07-09] MEDS: MAGNESIUM HYDROXIDE SUSP 30 ML CUP PO SCH (08:18)
[2017-07-09] MEDS: POLYETHYLENE GLYCOL 17 GM PKG PO SCH (08:18)
[2017-07-09] MEDS: CLOPIDOGREL 75 MG TAB PO SCH (08:18)
[2017-07-09] MEDS: RESP: ALBUTEROL 2.5 MG/IPRATROPIUM 0.5 MG NEB (SCH) NEB ×3 (08:37→19:42)
[2017-07-09] MEDS: FUROSEMIDE 40 MG TAB PO SCH (08:46)
[2017-07-09] MEDS ORDERED: CYCLOBENZAPRINE HCL 10 MG TAB PO PRN (10:15)
[2017-07-09] MEDS ORDERED: TEMAZEPAM 7.5 MG CAP PO PRN (10:15)
[2017-07-09] MEDS ORDERED: PILL SPLITTER OTHER PRN (10:30)
[2017-07-09] MEDS: BUDESONIDE-FORMOTEROL 160/4.5 MCG INHALER INH SCH ×2 (11:37→20:29)
[2017-07-09 12:02] LABS: BICARBONATE 31.6 MEQ/L (21.0-32.0); MAGNESIUM 2.4 MG/DL (1.5-2.5); POTASSIUM 4.7 MEQ/L (3.5-5.1)
--- NOTE | 2017-07-09 14:18 | PD.CAR.PN ---
CVT Progress Note Subjective/Hospital Course: 67/ male Pt of Dr Oleg Gifford ( PCP) and Dr Nj Echeverria (cardiology in [place] ) known hx of AMI and subsequent PCI ( [place]) with progressive symptoms of chest pain, SOB and fatigue. Underwent further testing with + stress test showing reversible ischemia, cardiac cath revealed multivessel disease EF 55-60% , mild MR, TR PMH: CAD/ stent ( prior [place]) , COPD, depression , GERD, HTN, HLP, spinal surgery surgery 07/04: 1. Off-pump Coronary Artery Bypass Grafting x 4 with Left Internal Mammary Artery (VILLAGRAN) to Left Anterior Descending (LAD), reverse saphenous vein graft to the RCA, reverse saphenous vein graft to the OM1 and reverse saphenous vein graft to the Diagonal 1 2. Ultrasound-guided Dissection of the LAD 3. Left Leg Endoscopic Vein [place] 07/05 Doing well Extubated and tolerating well On no pressors/inotropes Transfer telemetry Ambulate 07/06 Doing well D/C CT Ambulate and wean oxygen Discharge planning 07/07 Doing well today Had episode of desaturation yesterday, likely secondary to mucous plugging Encourage IS and pulmonary toiletry Resume bronchodilator therapy Ambulate Gentle diuresis 07/08 Desaturates with ambulation Not wanting to walk or do IS. Encouraged pulmonary toiletry Might need rehab upon discharge. Will have CM assess Wean O2 as tolerated 07/09 pt required simple face mask last pm, now back on 3 liter nasal cannula pt requires aggressive pulm toileting, discussed with pt and family Duo nebs reordreed, ezpap acapella symbicort added, narcotics decreased continue ambulation not sleeping well at night , ( up late at home and sleeps frequently during the day per family) will need environmental cues pt went into afib early this am, converted on his own, BB increased / lytes ok Objective: GENERAL: sleepy, but alert and oriented SKIN: Warm and dry. 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 EYES: No scleral icterus. No injection or drainage. NECK: Supple, trachea midline. No JVD or lymphadenopathy. CARDIOVASCULAR: Regular rate and rhythm without murmurs, gallops, or rubs. RESPIRATORY: more diminished right lower lobe , exp wheeze Breath sounds equal bilaterally. No accessory muscle use. GASTROINTESTINAL: Abdomen soft, non-tender, nondistended. MUSCULOSKELETAL: No cyanosis, or edema. BACK: Nontender without obvious deformity. No CVA tenderness. Vital Signs Date Time Temp Pulse Resp B/P (MAP) Pulse Ox O2 Delivery O2 Flow Rate FiO2 07/09/17 13:00 81 07/09/17 11:00 65 07/09/17 11:00 91 Nasal Cannula 3.00 07/09/17 11:00 97.6 70 21 139/80 (99) 91 07/09/17 10:00 70 07/09/17 09:00 80 07/09/17 08:40 100 Nasal Cannula 3.00 07/09/17 08:00 65 07/09/17 07:08 71 07/09/17 07:00 97.5 85 20 142/75 (97) 91 07/09/17 07:00 91 Nasal Cannula 3.00 07/09/17 06:00 70 07/09/17 05:00 72 07/09/17 04:34 100 Nasal Cannula 3.00 07/09/17 04:00 76 07/09/17 03:00 98.2 76 24 146/82 (103) 100 07/09/17 03:00 72 07/09/17 03:00 98 Nasal Cannula 4.00 07/09/17 02:00 68 07/09/17 01:00 68 07/09/17 00:30 92 Nasal Cannula 6.00 07/09/17 00:00 72 07/08/17 23:00 100 Simple Mask 8.00 07/08/17 23:00 70 07/08/17 23:00 98.3 74 20 139/79 (99) 100 07/08/17 22:30 86 Nasal Cannula 6.00 07/08/17 22:00 72 07/08/17 21:00 74 07/08/17 20:57 96 Nasal Cannula 4.00 07/08/17 20:00 72 07/08/17 19:49 100 Nasal Cannula 2.00 07/08/17 19:44 98.3 75 20 139/76 (97) 100 07/08/17 19:00 77 07/08/17 18:08 80 07/08/17 17:00 72 07/08/17 16:00 64 07/08/17 15:47 95 Nasal Cannula 2.00 07/08/17 15:47 98.0 67 17 139/83 (101) 95 07/08/17 15:00 69 Labs: Laboratory Tests Test 07/09/17 10:45 Blood Urea Nitrogen 16 MG/DL (7-18) Creatinine 0.82 MG/DL (0.60-1.30) Random Glucose 142 MG/DL (74-106) Calcium Level 8.9 MG/DL (8.5-10.1) Phosphorus Level 2.9 MG/DL (2.5-4.9) Magnesium Level 2.4 MG/DL (1.5-2.5) Sodium Level 136 MEQ/L (136-145) Potassium Level 4.7 MEQ/L (3.5-5.1) Chloride Level 98 MEQ/L (98-107) Carbon Dioxide Level 31.6 MEQ/L (21.0-32.0) Anion Gap 6 MEQ/L (5-15) Estimat Glomerular Filtration Rate 93 ML/MIN (>89) Result Diagram: 07/06/17 0545 07/09/17 1045 Telemetry: Afib> NSR (1) Coronary artery disease (2) S/P CABG x 4 Plan: ASA, statin BB , plavix decrease lasix dose weight - continue Duo nebs, ezpap acapella environmental cues (3) Afib Plan: continue amiodarone BB increased (4) Depression Plan: on trazadone (5) Hyperlipemia Plan: on statin (6) Hypertension Plan: controlled Problem Qualifiers (1) Coronary artery disease: Lotus Sahni Jul 09, 2017 14:18
[2017-07-09] MEDS: RESP: ALBUTEROL 2.5 MG/IPRATROPIUM 0.5 MG NEB (PRN) NEB (16:26)
[2017-07-09] MEDS: ACETAMINOPHEN/HYDROcodone 325 MG/5 MG TAB PO PRN ×2 (17:17→23:02)
[2017-07-09] MEDS: traZODone HCL 50 MG TAB PO SCH (20:29)
[2017-07-09] MEDS: SENNOSIDES 8.6 MG TAB PO SCH (20:29)
[2017-07-09] MEDS: PRAVASTATIN SOD 80 MG TAB PO SCH (20:29)
[2017-07-10] VITALS (26 sets, daily range): BP systolic 121–160; BP diastolic 69–99; PULSE 62–78; RESP 12–20; TEMP 97.5–98.5; O2SAT 92–99
[2017-07-10] MEDS: PANTOPRAZOLE SOD 40 MG DELAYED RELEASE TAB PO SCH (06:00)
[2017-07-10] MEDS: INSULIN ASPART SUPPLEMENTAL SCALE SQ SCH ×4 (08:00→21:00)
[2017-07-10] MEDS: SODIUM CHLORIDE 0.9% FLUSH 10 ML FLUSH IV FLUSH SCH ×2 (08:36→21:12)
[2017-07-10] MEDS: MAGNESIUM HYDROXIDE SUSP 30 ML CUP PO SCH (08:45)
[2017-07-10] MEDS: POLYETHYLENE GLYCOL 17 GM PKG PO SCH (08:45)
[2017-07-10] MEDS: BUDESONIDE-FORMOTEROL 160/4.5 MCG INHALER INH SCH ×2 (08:45→21:10)
[2017-07-10] MEDS: SUCRALFATE 1 GM TAB PO SCH ×2 (08:45→21:10)
[2017-07-10] MEDS: ESCITALOPRAM OXALATE 20 MG TAB PO SCH (08:46)
[2017-07-10] MEDS: MULTIVITAMINS/MINERALS THERAPEUTIC TAB PO SCH (08:46)
[2017-07-10] MEDS: ASPIRIN 81 MG CHEW TAB PO SCH (08:46)
[2017-07-10] MEDS: FUROSEMIDE 40 MG TAB PO SCH (08:46)
[2017-07-10] MEDS: PARoxetine HCL 20 MG TAB PO SCH (08:46)
[2017-07-10] MEDS: METOPROLOL TARTRATE 25 MG TAB PO SCH ×2 (08:46→21:11)
[2017-07-10] MEDS: POTASSIUM CHLORIDE 10 MEQ CAP PO SCH (08:46)
[2017-07-10] MEDS: DOCUSATE SODIUM 100 MG CAP PO SCH ×2 (08:46→21:11)
[2017-07-10] MEDS: CLOPIDOGREL 75 MG TAB PO SCH (08:46)
[2017-07-10] MEDS: AMIODARONE 200 MG TAB PO SCH ×2 (08:47→21:11)
[2017-07-10] MEDS: RESP: ALBUTEROL 2.5 MG/IPRATROPIUM 0.5 MG NEB (SCH) NEB ×3 (08:48→19:42)
--- NOTE | 2017-07-10 10:22 | RADRPT ---
EXAM DATE/TIME: 07/10/2017 10:01 [facility] COMPARISON: CHEST PA & LAT, July 08, 2017, 12:41. INDICATIONS : Difficulty breathing. Evaluate effusion. MEDICAL HISTORY : Hypertension. Myocardial infarction. SURGICAL HISTORY : CABG. Cardiac stents. Left arm surgery. ENCOUNTER: Subsequent ACUITY: 4 - 6 days PAIN SCORE: 3/10 LOCATION: Bilateral chest FINDINGS: The heart is mildly enlarged. The patient is post median sternotomy. There is a small left basilar ef fusion. There is minimal effusion on the right. There are chronic interstitial changes within the par enchyma. The exam is unchanged compared to previous dated 07/08/17. The osseous structures are grossly intact. CONCLUSION: 1. Minimal effusion on the right. There is a small effusion on the left. Exam is stable compared to nasreen anthony. Renny Durham MD on July 10, 2017 at 10:19 Board Certified Radiologist. This report was verified electronically.
--- NOTE | 2017-07-10 10:55 | PD.CAR.PN ---
CVT Progress Note Subjective/Hospital Course: 67/ male Pt of Dr Oleg Gifford ( PCP) and Dr Nj Echeverria (cardiology in [place] ) known hx of AMI and subsequent PCI ( [place]) with progressive symptoms of chest pain, SOB and fatigue. Underwent further testing with + stress test showing reversible ischemia, cardiac cath revealed multivessel disease EF 55-60% , mild MR, TR PMH: CAD/ stent ( prior [place]) , COPD, depression , GERD, HTN, HLP, spinal surgery surgery 07/04: 1. Off-pump Coronary Artery Bypass Grafting x 4 with Left Internal Mammary Artery (VILLAGRAN) to Left Anterior Descending (LAD), reverse saphenous vein graft to the RCA, reverse saphenous vein graft to the OM1 and reverse saphenous vein graft to the Diagonal 1 2. Ultrasound-guided Dissection of the LAD 3. Left Leg Endoscopic Vein [place] 07/05 Doing well Extubated and tolerating well On no pressors/inotropes Transfer telemetry Ambulate 07/06 Doing well D/C CT Ambulate and wean oxygen Discharge planning 07/07 Doing well today Had episode of desaturation yesterday, likely secondary to mucous plugging Encourage IS and pulmonary toiletry Resume bronchodilator therapy Ambulate Gentle diuresis 07/08 Desaturates with ambulation Not wanting to walk or do IS. Encouraged pulmonary toiletry Might need rehab upon discharge. Will have CM assess Wean O2 as tolerated 07/09 pt required simple face mask last pm, now back on 3 liter nasal cannula pt requires aggressive pulm toileting, discussed with pt and family Duo nebs reordreed, ezpap acapella symbicort added, narcotics decreased continue ambulation not sleeping well at night , ( up late at home and sleeps frequently during the day per family) will need environmental cues pt went into afib early this am, converted on his own, BB increased / lytes ok 07/10 remains on 02 at 3 liters, still sleepy this am, despite saying he slept better will dc Restoril and Flexeril ( discussed with pt), he needs to be more awake during day takes multiple meds at home for pain , depression and sleep. No further afib, continue aggressive pulm toileting CXR shows small left effusion, increased interstitial markings/ additional IV lasix today then eval for rehab transfer tomorrow Objective: GENERAL: sleepy , but A&O SKIN: Warm and dry. prevena dressing to chest , incision intact left EVH site / no redness HEAD: Normocephalic. EYES: No scleral icterus. No injection or drainage. NECK: Supple, trachea midline. No JVD or lymphadenopathy. CARDIOVASCULAR: Regular rate and rhythm without murmurs, gallops, or rubs. RESPIRATORY: Breath sounds equal bilaterally. No accessory muscle use. few coarse breath sounds, few basilar crackles, GASTROINTESTINAL: Abdomen soft, non-tender, nondistended. MUSCULOSKELETAL: No cyanosis, or edema. BACK: Nontender without obvious deformity. No CVA tenderness. Vital Signs Date Time Temp Pulse Resp B/P (MAP) Pulse Ox O2 Delivery O2 Flow Rate FiO2 07/10/17 10:16 62 07/10/17 09:29 68 07/10/17 08:56 66 07/10/17 08:56 97.5 74 20 160/99 (119) 97 07/10/17 08:56 97 Nasal Cannula 3.00 07/10/17 08:52 92 Nasal Cannula 4.00 07/10/17 06:00 68 07/10/17 05:00 68 07/10/17 04:00 68 07/10/17 03:21 97.8 66 12 148/87 (107) 96 07/10/17 03:00 96 Nasal Cannula 2.00 07/10/17 03:00 69 07/10/17 02:00 78 07/10/17 01:00 78 07/10/17 00:00 78 07/09/17 23:00 64 07/09/17 23:00 98.0 67 16 130/81 (97) 98 07/09/17 23:00 98 Nasal Cannula 3.00 07/09/17 22:00 78 07/09/17 21:00 84 07/09/17 20:00 78 07/09/17 19:42 98 Nasal Cannula 4.00 07/09/17 19:15 97.9 77 18 144/74 (97) 98 07/09/17 19:15 98 Nasal Cannula 3.00 07/09/17 19:00 77 07/09/17 18:14 77 07/09/17 17:23 78 07/09/17 16:12 82 07/09/17 15:00 96 Nasal Cannula 3.00 07/09/17 15:00 73 07/09/17 15:00 98.3 73 19 132/72 (92) 96 07/09/17 14:00 80 07/09/17 13:00 81 07/09/17 11:00 65 07/09/17 11:00 91 Nasal Cannula 3.00 07/09/17 11:00 97.6 70 21 139/80 (99) 91 Result Diagram: 07/06/17 0545 07/09/17 1045 Telemetry: NSR (1) Coronary artery disease (2) S/P CABG x 4 Plan: ASA, statin BB , plavix additional IV lasix today continue Duo nebs, ezpap acapella environmental cues stop flexeril and restoril pt too sedated continue ambulation will dc to rehab in am (3) Afib Plan: continue amiodarone BB (4) Depression Plan: on trazadone (5) Hyperlipemia Plan: on statin (6) Hypertension Plan: controlled Problem Qualifiers (1) Coronary artery disease: Lotus Sahni Jul 10, 2017 10:55
[2017-07-10] MEDS ORDERED: MELATONIN 5 MG TAB PO PRN ×2 (11:00→21:00)
[2017-07-10] MEDS: ACETAMINOPHEN/HYDROcodone 325 MG/5 MG TAB PO PRN ×3 (12:15→23:47)
[2017-07-10] MEDS ORDERED: FUROSEMIDE 40 MG/4 ML VIAL IV PUSH ONE (16:00)
[2017-07-10] MEDS: traZODone HCL 50 MG TAB PO SCH (21:11)
[2017-07-10] MEDS: PRAVASTATIN SOD 80 MG TAB PO SCH (21:11)
[2017-07-10] MEDS: SENNOSIDES 8.6 MG TAB PO SCH (21:11)
[2017-07-11] VITALS (12 sets, daily range): BP systolic 140–145; BP diastolic 80–82; PULSE 60–69; RESP 16–17; TEMP 97.3–97.9; O2SAT 93
[2017-07-11] MEDS: PANTOPRAZOLE SOD 40 MG DELAYED RELEASE TAB PO SCH (05:38)
[2017-07-11] MEDS: ACETAMINOPHEN/HYDROcodone 325 MG/5 MG TAB PO PRN ×2 (05:38→11:17)
[2017-07-11] MEDS: INSULIN ASPART SUPPLEMENTAL SCALE SQ SCH (08:00)
[2017-07-11] MEDS: RESP: ALBUTEROL 2.5 MG/IPRATROPIUM 0.5 MG NEB (SCH) NEB (08:00)
[2017-07-11] MEDS: SODIUM CHLORIDE 0.9% FLUSH 10 ML FLUSH IV FLUSH SCH (08:22)
[2017-07-11] MEDS: ASPIRIN 81 MG CHEW TAB PO SCH (08:22)
[2017-07-11] MEDS: BUDESONIDE-FORMOTEROL 160/4.5 MCG INHALER INH SCH (08:22)
[2017-07-11] MEDS: MULTIVITAMINS/MINERALS THERAPEUTIC TAB PO SCH (08:22)
[2017-07-11] MEDS: PARoxetine HCL 20 MG TAB PO SCH (08:23)
[2017-07-11] MEDS: DOCUSATE SODIUM 100 MG CAP PO SCH (08:23)
[2017-07-11] MEDS: METOPROLOL TARTRATE 25 MG TAB PO SCH (08:23)
[2017-07-11] MEDS: AMIODARONE 200 MG TAB PO SCH (08:23)
[2017-07-11] MEDS: SUCRALFATE 1 GM TAB PO SCH (08:23)
[2017-07-11] MEDS: POLYETHYLENE GLYCOL 17 GM PKG PO SCH (08:24)
[2017-07-11] MEDS: CLOPIDOGREL 75 MG TAB PO SCH (08:24)
[2017-07-11] MEDS: ESCITALOPRAM OXALATE 20 MG TAB PO SCH (08:24)
[2017-07-11] MEDS: POTASSIUM CHLORIDE 10 MEQ CAP PO SCH (08:24)
[2017-07-11] MEDS: MAGNESIUM HYDROXIDE SUSP 30 ML CUP PO SCH (08:24)
[2017-07-11] MEDS: FUROSEMIDE 40 MG TAB PO SCH (08:25)
[2017-07-11] MEDS ORDERED: THERM PO (09:26)
[2017-07-11] MEDS ORDERED: POLY17S PO (09:26)
[2017-07-11] MEDS ORDERED: POTA8TAB PO (09:26)
[2017-07-11] MEDS ORDERED: GNP5TAB6 PO (09:26)
[2017-07-11] MEDS ORDERED: IPRASOL NEB ×2 (09:26)
[2017-07-11] MEDS ORDERED: FURO40TA PO (09:26)
[2017-07-11] MEDS ORDERED: AMIO200T PO (09:26)
[2017-07-11] MEDS ORDERED: METO25TA3 PO (09:26)
[2017-07-11] MEDS ORDERED: SYMB160A INH (09:26)
[2017-07-11] MEDS ORDERED: HYDR-3516 PO (09:26)
[2017-07-11] MEDS ORDERED: DOCU1CAP39 PO (09:26)
--- NOTE | 2017-07-11 11:05 | HHI.DS ---
Discharge Summary Admission Date Jul 04, 2017 at 05:41 Discharge Date: Jul 11, 2017 Admitting Diagnosis chest pain , CAD (1) COPD (chronic obstructive pulmonary disease) Diagnosis: Principal ICD Codes: J44.9 - Chronic obstructive pulmonary disease, unspecified Status: Chronic (2) Coronary artery disease Diagnosis: Principal ICD Codes: I25.10 - Atherosclerotic heart disease of [place] coronary artery without angina pectoris Status: Chronic (3) Depression Diagnosis: Principal ICD Codes: F32.9 - Major depressive disorder, single episode, unspecified Status: Chronic (4) Hyperlipemia Diagnosis: Principal ICD Codes: E78.5 - Hyperlipidemia, unspecified Status: Chronic (5) Hypertension Diagnosis: Principal ICD Codes: I10 - Essential (primary) hypertension Status: Chronic (6) S/P CABG x 4 Diagnosis: Secondary ICD Codes: Z95.1 - Presence of aortocoronary bypass graft Status: Acute (7) Afib Diagnosis: Secondary ICD Codes: I48.91 - Unspecified atrial fibrillation Status: Acute Procedures 1. Off-pump Coronary Artery Bypass Grafting x 4 with Left Internal Mammary Artery (VILLAGRAN) to Left Anterior Descending (LAD), reverse saphenous vein graft to the RCA, reverse saphenous vein graft to the OM1 and reverse saphenous vein graft to the Diagonal 1 2. Ultrasound-guided Dissection of the LAD 3. Left Leg Endoscopic Vein [place] Brief History 67/ male Pt of Dr Oleg Gifford ( PCP) and Dr Nj Echeverria (cardiology in [place] ) known hx of AMI and subsequent PCI ( [place]) with progressive symptoms of chest pain, SOB and fatigue. Underwent further testing with + stress test showing reversible ischemia, cardiac cath revealed multivessel disease EF 55-60% , mild MR, TR PMH: CAD/ stent ( prior [place]) , COPD, depression , GERD, HTN, HLP, spinal surgery surgery 07/04: 1. Off-pump Coronary Artery Bypass Grafting x 4 with Left Internal Mammary Artery (VILLAGRAN) to Left Anterior Descending (LAD), reverse saphenous vein graft to the RCA, reverse saphenous vein graft to the OM1 and reverse saphenous vein graft to the Diagonal 1 2. Ultrasound-guided Dissection of the LAD 3. Left Leg Endoscopic Vein [place] CBC/BMP: 07/09/17 1045 Significant Findings Laboratory Tests Test 07/09/17 10:45 Random Glucose 142 MG/DL (74-106) Imaging Last Impressions Chest X-Ray 07/10/17 0000 Signed Impressions: Service Date/Time: Monday, July 10, 2017 10:01 - CONCLUSION: 1. Minimal effusion on the right. There is a small effusion on the left. Exam is stable compared to previous. Renny Durham MD PE at Discharge GENERAL: more awake, alert SKIN: Warm and dry. incision intact and well approximated to chest , left EVH site intact HEAD: Normocephalic. EYES: No scleral icterus. No injection or drainage. NECK: Supple, trachea midline. No JVD or lymphadenopathy. CARDIOVASCULAR: Regular rate and rhythm without murmurs, gallops, or rubs. RESPIRATORY: diminished in bases Breath sounds equal bilaterally. No accessory muscle use. GASTROINTESTINAL: Abdomen soft, non-tender, nondistended. MUSCULOSKELETAL: No cyanosis, or edema. BACK: Nontender without obvious deformity. No CVA tenderness. Hospital Course 07/05 Doing well Extubated and tolerating well On no pressors/inotropes Transfer telemetry Ambulate 07/06 Doing well D/C CT Ambulate and wean oxygen Discharge planning 07/07 Doing well today Had episode of desaturation yesterday, likely secondary to mucous plugging Encourage IS and pulmonary toiletry Resume bronchodilator therapy Ambulate Gentle diuresis 07/08 Desaturates with ambulation Not wanting to walk or do IS. Encouraged pulmonary toiletry Might need rehab upon discharge. Will have CM assess Wean O2 as tolerated 07/09 pt required simple face mask last pm, now back on 3 liter nasal cannula pt requires aggressive pulm toileting, discussed with pt and family Duo nebs reordreed, ezpap acapella symbicort added, narcotics decreased continue ambulation not sleeping well at night , ( up late at home and sleeps frequently during the day per family) will need environmental cues pt went into afib early this am, converted on his own, BB increased / lytes ok 07/10 remains on 02 at 3 liters, still sleepy this am, despite saying he slept better will dc Restoril and Flexeril ( discussed with pt), he needs to be more awake during day takes multiple meds at home for pain , depression and sleep. No further afib, continue aggressive pulm toileting CXR shows small left effusion, increased interstitial markings/ additional IV lasix today then eval for rehab transfer tomorrow 07/11 pt now on room air still not sleeping well at night breath sounds improved , pain controlled continue po diuretics / bid x 3 days , then daily x 2 weeks stable for transfer to rehab Pt Condition on Discharge: Good Discharge Disposition: Rehab Inpatient Discharge Instructions DIET: Follow Instructions for: Heart Healthy Diet Activities you can perform: Shower Only-No Bath Activities to avoid: Strenuous Activity, Driving Additional Activity Instructio: no lifting > 8 lbs or gallon of milk Follow up Referrals: Appointment for Follow Up with Bennett Lindsey MD Cardiology with Dr Ross Echeverria [phone] [id number] PCP Follow-up with Dr Ирина Tejeda [phone] [id number] New Medications: Potassium Chloride ER (Potassium Chloride ER) 8 Meq Tab 8 MEQ PO DAILY for Electrolyte Replacement, #14 TAB 0 Refills Amiodarone (Amiodarone) 200 Mg Tab 200 MG PO Q12HR for heart rhythm, #28 TAB 0 Refills Budesonide-Formoterol Inh (Symbicort Inh) 160-4.5 Mcg/Act Aero 2 PUFF INH Q12HR for wheezing , #1 INHALER 2 Refills Docusate Sodium (Dok) 100 Mg Cap 100 MG PO BID for Constipation, #60 CAP Furosemide (Furosemide) 40 Mg Tab 40 MG PO DAILY for edema , #14 TAB bid x 3 days , then daily Hydrocodone-Acetaminophen (Hydrocodone-Acetaminophen) 5-325 mg Tab 1 TAB PO Q6H PRN for PAIN SCALE 1 TO 5, #30 TAB 0 Refills Ipratropium-Albuterol Neb (Duoneb) 0.5-2.5 Mg/3 Ml Neb 1 AMPULE NEB Q6HR WHILE AWAKE NEB for wheezing, #120 ML Ipratropium-Albuterol Neb (Duoneb) 0.5-2.5 Mg/3 Ml Neb 1 AMPULE NEB Q2HR NEB PRN for WHEEZING, #30 ML Melatonin (Gnp Melatonin Maximum Str) 5 Mg Tab 5 MG PO HS PRN for SLEEP, #30 TAB Metoprolol Tartrate (Metoprolol Tartrate) 25 Mg Tab 25 MG PO BID for Blood Pressure Management, #60 TAB 2 Refills Multiple Vitamins W/ Minerals (Thera M Plus) 1 Tab 1 TAB PO DAILY for multi vitamin, #30 TAB 2 Refills Polyethylene Glycol 3350 Powder (Polyethylene Glycol 3350 Powder) 17 Gram Pow 17 GM PO DAILY for Constipation, #30 PACK Continued Medications: Aspirin DR (Aspirin 81) 81 Mg Tabdr 81 MG PO DAILY, TAB 0 Refills Cholecalciferol (Vitamin D3) 1,000 Unit Tab 1000 UNITS PO DAILY for Nutritional Supplement, #1 BOTTLE 0 Refills Clopidogrel (Clopidogrel) 75 Mg Tab 75 MG PO DAILY for Blood Clot Prevention, #30 TAB 0 Refills Escitalopram (Lexapro) 20 Mg Tab 20 MG PO DAILY, #30 TAB 0 Refills Losartan (Losartan) 50 Mg Tab 50 MG PO DAILY for Blood Pressure Management, #30 TAB 0 Refills Omeprazole (Omeprazole) 40 Mg Cap 40 MG PO DAILY, #30 CAP 0 Refills Paroxetine (Paroxetine) 40 Mg Tab 40 MG PO DAILY, #30 TAB 0 Refills Simvastatin (Simvastatin) 40 Mg Tab 40 MG PO HS for Cholesterol Management, #30 TAB 0 Refills Sucralfate (Sucralfate) 1 Gram Tab 1 GM PO BID for Duodenal ulcer, #90 TAB 0 Refills on empty stomach Trazodone (Trazodone) 50 Mg Tab 50 MG PO HS for Control Depression, #30 TAB 0 Refills Discontinued Medications: Albuterol 8.5 GM Inh (Proair Hfa 8.5 GM Inh) 90 Mcg/Act Aer 1 PUFF INH Q4H PRN for SHORTNESS OF BREATH, #1 INHALER 0 Refills 108 mcg/actuation Cyclobenzaprine (Flexeril) 10 Mg Tab 10 MG PO TID PRN for SPASM, #90 TAB 0 Refills Furosemide (Furosemide) 20 Mg Tab 20 MG PO DAILY, #30 TAB 0 Refills Metoprolol Tartrate (Metoprolol Tartrate) 25 Mg Tab 25 MG PO DAILY, #30 TAB 0 Refills Oxycodone-Acetaminophen (Oxycodone-Acetaminophen) 10-325 mg Tab 1 TAB PO Q4H PRN for PAIN, TAB 0 Refills Lotus Sahni Jul 11, 2017 10:13
[2017-07-19] MEDS ORDERED: COMMODE 3-IN-11 MIS (15:25)
[2017-07-19] MEDS ORDERED: GETGO ROLLING W1 MI1 (15:25)
[2017-07-19] MEDS ORDERED: WHEEMIS3 (15:25)
[2017-07-22] MEDS ORDERED: HOSP BED1 (11:25)
[2017-07-24] MEDS ORDERED: TRAZ50TA12 PO (11:58)
[2017-07-24] MEDS ORDERED: METO25TA3 PO (11:58)
[2017-07-24] MEDS ORDERED: VITA100018 PO (11:58)
[2017-07-24] MEDS ORDERED: SUCR1TAB PO (11:58)
[2017-07-24] MEDS ORDERED: CLOP75TA PO (11:58)
[2017-07-24] MEDS ORDERED: DOCU1CAP39 PO (11:58)
[2017-07-24] MEDS ORDERED: SIMV40TA PO (11:58)
[2017-07-24] MEDS ORDERED: ASPI-110 PO (11:58)
[2017-07-24] MEDS ORDERED: OMEP40CA2 PO (11:58)
[2017-07-24] MEDS ORDERED: THERM PO (11:58)
[2017-07-24] MEDS ORDERED: REST15CA PO (11:58)
[2017-07-24] MEDS ORDERED: SYMB160A INH (11:58)
[2017-07-24] MEDS ORDERED: AMIO200T PO (11:58)
[2017-07-24] MEDS ORDERED: PARO40TA2 PO (11:58)
[2017-07-24] MEDS ORDERED: HYDR-3516 PO (11:58)
[2017-07-24] MEDS ORDERED: LOSA50TA PO (11:58)
== END 2017-07-11 11:30 | DRG 235 ==
LOC: EDUNIT# 07:30 → HSDI 07-04 05:41 → HCVR 07-04 12:45 → HCIN 07-05 19:30
PROVIDERS: ADMIT Thoracic Surgery (Cardiothoracic Vascular Surgery); ATTEND Thoracic Surgery (Cardiothoracic Vascular Surgery)
PROC: 06BQ3ZZ Excision of Left Saphenous Vein, Percutaneous Approach (ICD-10-PCS; 2017-07-04)
PROC: 021209W Bypass Coronary Artery, Three Arteries from Aorta with Autologous Venous Tissue, Open Approach (ICD-10-PCS; principal; 2017-07-04 07:15)
PROC: 02100Z9 Bypass Coronary Artery, One Artery from Left Internal Mammary, Open Approach (ICD-10-PCS; 2017-07-04 07:15)
DX: I25.110 Atherosclerotic heart disease of native coronary artery with unstable angina pectoris (principal); R57.1 Hypovolemic shock; I48.91 Unspecified atrial fibrillation; J44.9 Chronic obstructive pulmonary disease, unspecified; I10 Essential (primary) hypertension; E78.5 Hyperlipidemia, unspecified; I25.2 Old myocardial infarction; K21.9 Gastro-esophageal reflux disease without esophagitis; Z95.5 Presence of coronary angioplasty implant and graft; F32.9 Major depressive disorder, single episode, unspecified
CPT/HCPCS: 36430; 71010; 71020; 76937; 80048; 82948; 83735; 84100; 85014; 85025; 85027; 86850; 86900; 86901; 86920; 87070; 87205; 93005; 94002; 94150; 94640; 94664; 94667; 94668; C1768; J0131; J0171; J0461; J0690; J1100; J1644; J1815; J1817; J1885; J1940; J2250; J2270; J2370; J2405; J2440; J2710; J2720; J3010; J3370; J3475; J3480; J7050; J7060; J7120; P9016; P9045